=== PATIENT | female | born 1955 | race Caucasian/White ===

== ENCOUNTER 2021-01-31 07:25 | Outpatient (REF) | payer OTHER, SELFPAY ==
--- NOTE | ~2021-01-31 | MM_ITS ---
EXAMINATION: BONE DENSITOMETRY CLINICAL INDICATION: Osteopenia. COMPARISON: Baseline BD dated 09/08/2015. TECHNIQUE: Using a [employer] DXA System (software version: 13.1) manufactured by [employer], dual-energy x-ray absorptiometry was performed of the lumbar spine and left hip. The images are of good technical quality. Summary results are attached. FINDINGS: AP SPINE L1-L4: Current: BMD 0.850 g/cm2, Z-score -1.6, T-score -2.8, osteoporosis, 10.1% decrease from baseline (<5% change is not significant). Baseline: BMD 0.945 g/cm2. LEFT FEMUR, NECK: Current: BMD 0.685 g/cm2, Z-score -1.3, T-score -2.5, osteoporosis. Baseline: BMD 0.723 g/cm2. LEFT FEMUR, TOTAL: Current: BMD 0.794 g/cm2, Z-score -0.8, T-score -1.7, osteopenia, 3.4% decrease from baseline (<5% change is not significant). Baseline: BMD 0.822 g/cm2. IDENTIFIED RISK FACTORS: Menopause, history of fracture (adult). HISTORY OF FRACTURE: Wrist. MEDICATIONS: Calcium, vitamin D. MM/XR DEXA axial skeleton IMPRESSION: 1. DIAGNOSIS: Severe osteoporosis based on the lowest T-score value of -2.8 in the lumbar spine and history of fracture of wrist applying World Health Organization criteria. 2. 10-YEAR FRACTURE RISK PREDICTION, FRAX: Major osteoporotic fracture (clinical spine, forearm, hip or shoulder) 21.4%. Hip fracture 4.8%. 3. Treatment Recommendations: NOF guidelines recommend consideration for treatment in postmenopausal women and men age 50 and older presenting with the following: -A hip or vertebral (clinical or morphometric) fracture. -T-score less than or equal to -2.5 at the femoral neck or spine after appropriate evaluation to exclude secondary causes. -Low bone mass at the hip or spine and a 10-year fracture probability by FRAX of greater than or equal to 3% for hip fracture or greater than or equal to 20% for major osteoporotic fracture based on the [place] adapted WHO algorithm. 4. Other Recommendations: All treatment decisions require clinical judgment and consideration of individual patient factors, including patient preferences, comorbidities, previous drug use, risk factors not captured in the FRAX model (e.g. frailty, falls, vitamin D deficiency, increased bone turnover, interval significant decline in bone density) and possible under or overestimation of fracture risk by FRAX. Additional medical evaluation for secondary cause of low bone mineral density may be appropriate. FUTURE SCAN RECOMMENDATION: People with diagnosed cases of osteoporosis or at high risk for fracture should have regular bone mineral density tests. For patients eligible for Medicare, routine testing is allowed once every 2 years. The testing frequency can be increased to one year for patients who have rapidly progressing disease, those who are receiving or discontinuing medical therapy to restore bone mass, or have additional risk factors.
--- NOTE | ~2021-01-31 | MM_ITS ---
EXAMINATION: MM SCREENING DIGITAL BREAST TOMOSYNTHESIS, BILATERAL CLINICAL INFORMATION: Screening. Asymptomatic. The lifetime risk of breast cancer based on the Tyrer-Cuzick Model is 9%. COMPARISON: Mammography: 05/26/2018, 06/24/2017, 10/15/2016 TECHNIQUE: Digital mammography is performed in craniocaudal and mediolateral oblique views along with computer-aided detection (CAD). Digital breast tomosynthesis is performed in implant-displaced craniocaudal and implant-displaced mediolateral oblique views along with computer-aided detection (CAD). Synthesized 2D images are generated from the tomosynthesis. FINDINGS: There are scattered areas of fibroglandular density (ACR BI-RADS breast composition Category b). There are bilateral implants. The implant contours are similar to prior studies. Again, there is heavy bilateral benign capsular calcifications along the implant contours. Parenchymal pattern is similar to prior studies. There is no developing density or interval mass or architectural abnormality. No abnormal calcifications. The skin contours are smooth. No significant changes. MM/MM tomosynthesis screen imp BI IMPRESSION: No mammographic evidence of malignancy. ASSESSMENT: BI-RADS 2: Benign RECOMMENDATION: Routine annual mammography screening. This patient's information was entered into a reminder system with a target due date for their next mammogram.
== END 2021-01-31 07:26 | disposition home or self-care (01) ==
LOC: HO.MAMMO 07:25
PROVIDERS: PCP Internal Medicine; Visit Provider Internal Medicine
DX: Z12.31 Encounter for screening mammogram for malignant neoplasm of breast (principal); Z13.820 Encounter for screening for osteoporosis; M85.80 Other specified disorders of bone density and structure, unspecified site; M81.0 Age-related osteoporosis without current pathological fracture; Z87.81 Personal history of (healed) traumatic fracture; Z78.0 Asymptomatic menopausal state; Z79.899 Other long term (current) drug therapy
CPT/HCPCS: 77063; 77067; 77080

== ENCOUNTER 2023-02-18 08:22 | Outpatient (REF) | payer MEDICARE, SELFPAY ==
--- NOTE | ~2023-02-18 | XR_ITS ---
EXAMINATION: XR SHOULDER, LEFT CLINICAL INFORMATION: Pain. COMPARISON: None available. TECHNIQUE: AP neutral, scapular Y, and axillary views of the left shoulder. FINDINGS: The bones and soft tissues are normal. No fracture. Glenohumeral and acromioclavicular alignment is anatomic with normal joint space. No abnormal soft tissue calcifications. XR/XR shoulder LT min 2V IMPRESSION: Normal left shoulder.
== END 2023-02-18 08:23 | disposition home or self-care (01) ==
LOC: HO.HOSX 08:22
PROVIDERS: Visit Provider Physician Assistant
DX: M25.512 Pain in left shoulder (principal); M75.82 Other shoulder lesions, left shoulder
CPT/HCPCS: 20610; 73030; 99202; J1040

== ENCOUNTER → 2023-03-18 08:00 | Outpatient (BNV) | payer MEDICARE, SELFPAY | PROVIDERS: PCP Internal Medicine; Visit Provider Radiology Diagnostic Radiology | DX: Z12.31 Encounter for screening mammogram for malignant neoplasm of breast (principal) | CPT/HCPCS: 77063; 77067 ==

== ENCOUNTER 2023-03-18 08:06 | Outpatient (REF) | payer MEDICARE, SELFPAY ==
--- NOTE | ~2023-03-18 | MM_ITS ---
EXAMINATION: MM SCREENING DIGITAL BREAST TOMOSYNTHESIS, BILATERAL WITH BREAST IMPLANTS CLINICAL INFORMATION: Screening. Asymptomatic. The lifetime risk of breast cancer based on the Tyrer-Cuzick Model is 7.1%. COMPARISON: Mammography: This study is compared with the prior exams dating back to 2017. TECHNIQUE: Digital mammography is performed in craniocaudal and mediolateral oblique views along with computer-aided detection (CAD). Digital breast tomosynthesis is performed in implant-displaced craniocaudal and implant-displaced mediolateral oblique views along with computer-aided detection (CAD). Synthesized 2D images are generated from the tomosynthesis. Implant displaced MLO and cc views are performed. FINDINGS: There are scattered areas of fibroglandular density (ACR BI-RADS breast composition Category b). There are mammographically intact, retroglandular silicone implants. There is capsular contraction and evidence of surface calcifications of the implants. There are no significant masses, abnormal calcifications, or other abnormalities. MM/MM tomosynthesis screen imp BI IMPRESSION: No mammographic evidence of malignancy. ASSESSMENT: BI-RADS BI-RADS 1 - Negative RECOMMENDATION: Routine annual mammography screening. 1 year F/U This patient's information was entered into a reminder system with a target due date for their next mammogram.
== END 2023-03-18 08:07 | disposition home or self-care (01) ==
LOC: HO.MAMMO 08:06
PROVIDERS: PCP Internal Medicine; Visit Provider Internal Medicine
DX: Z12.31 Encounter for screening mammogram for malignant neoplasm of breast (principal)
CPT/HCPCS: 77063; 77067

== ENCOUNTER 2024-01-13 11:33 | Outpatient (AMB) | payer MEDICARE, SELFPAY ==
[2024-01-13 11:34] VITALS: BP 124/78; PULSE 98; O2SAT 73; BMI 32.7
--- NOTE | 2024-01-13 11:34 | A.OFFPC_ITS ---
Vital Signs 01/13/24 11:34 Height 5 ft 2 in Weight 179 lb 0.2 oz BMI 32.7 BP 124/78 Blood Pressure Location Lt brachial Position Sitting Pulse 98 Pulse Source Pulse Oximeter Pulse Oximetry (%) 73 L Oxygen Delivery Method Room Air Intake Visit Reasons: PE Intake Note: Patient is here today for a physical. 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 Allergies No Known Allergies [No Known Allergies*] Allergy (Verified 01/13/24 11:35) Medication List - Last Reconciled 01/13/24 by Kiera Silva MD famotidine 40 mg PO DAILY glucosamine sulfate (Glucosamine) 500 mg PO DAILY milk thistle 500 mg PO DAILY multivitamin 1 tab PO DAILY turmeric mg PO Tobacco use date assessed: 01/13/24 Fall risk assessment: No Falls in past year Last assessed Fall Risk: 01/13/24 Dental Screening Dental Screen Date: 01/13/24 Did you have a dental visit in the last 12 months?: Yes Did you have a dental problem in the last 6 months where you did not have access to dental care?: No Was dental information given to patient?: Patient has dentist HPI PE HPI Details 68-year-old obese female with impaired g lucose tolerance hypercholesterolemia osteopenia coming in for physical exam last seen in 2020. Patient's colonoscopy is due mammogram is up-to-date bone density is due. March 2023 had some left shoulder pain seen Orthopedics conservative management. pain chest 2 months sitting went to the back = lasting 1 mon, sob pain spontanously get better. deny pain on palpable, deny heartburn. no naps , no sleeping on watching tv [facility] Medical History Asthma GERD (gastroesophageal reflux disease) Hepatitis B Hypercholesterolemia Obesity (BMI 30-39.9) Osteopenia Vaginal atrophy Surgical History Breast implant in situ H/O wrist surgery Family History Mother High blood pressure Arthritis Father No problems noted. Social History (Updated 01/13/24 @ 11:57 by Kiera Silva MD) Alcohol intake: current Alcohol intake frequency: a few times a week Alcohol type: wine Comment: 2x a week 1 glass Patient Tobacco Use Status: Never used Tobacco Current occupational status: employed Current occupation: rt hand/ manager development Cognitive needs: No Hearing needs: No Vision needs: No Questionnaire PHQ-9 Over the last 2 weeks, how often have you been bothered by any of the following problems? 1. Little interest or pleasure in doing things: not at all 2. Feeling down, depressed, or hopeless: not at all 3. Trouble falling or staying asleep, or sleeping too much: not at all 4. Feeling tired or having little energy: not at all 5. Poor appetite or overeating: not at all 6. Feeling bad about yourself - or that you are a failure or have let yourself or your family down: not at all 7. Trouble concentrating on things, such as reading the newspaper or watching television: not at all 8. Moving or speaking so slowly that other people could have noticed. Or the opposite - being so fidgety or restless that you have been moving around a lot more than usual: not at all 9. Thoughts that you would be better off or of hurting yourself in some way: not at all Total score: 0 Depression Screening Interpretation: Negative Depression Screening Done: Yes 12225 - PHQ-9 Billing: Yes Source: Developed by Drs. Vicente Cordon, Vivian Roberts, Hank New and colleagues, with an educational joel from [employer]. Thrive Questionnaire Date Thrive assessed: 01/13/24 I am a: Patient What is your living situation today?: I have a steady place to live Within the past 12 months, did the food you bought not last and you didn't have the money to get more?: Never true Within the past 12 months, did you worry whether your food would run out before you got money to buy more?: Never true Do you have trouble paying for medicines?: No Do you have trouble getting transportation to medical appointments?: No Do you have trouble paying your heating and electricity bill?: No Do you have trouble taking care of your child, family member or friend?: No Do you have trouble with day-to-day activities such as bathing, preparing meals, shopping, managing finances, etc.?: No Are you currently unemployed and looking for a job?: No Are you interested in more education?: No Please select the resources that you would like help with: None Currently or been in a relationship where the following occur: no concerns reported THRIVE Score: 0 AUDIT C Alcohol Use Questionnaire (AUDIT-C) 1. How often do you have a drink containing alcohol?: 2-3 times a week 2. How many drinks containing alcohol do you have on a typical day when you are drinking?: 1 or 2 3. How often do you have six or more drinks on one occasion?: Never Total Score: 3 KEITH-7 AMB Questionnaire KEITH-7 Date KEITH - 7 assessed: 01/13/24 Feeling nervous, anxious, or on edge: 0 = Not at all Not being able to stop or control worryin = Not at all Worrying too much about different things: 0 = Not at all Trouble relaxin = Not at all Being so restless that it is hard to sit still: 0 = Not at all Becoming easily annoyed or irritable: 0 = Not at all Feeling afraid as if something awful might happen: 0 = Not at all Total KEITH-7 score (0-4 normal; 5-9 mild; 10-14 moderate; 15-21 severe): 0 Source: Developed by Drs. Vicente Cordon, Vivian Roberts, Hank New and colleagues, with an educational joel from [employer]. KEITH-7 Assessment Billing KEITH-7 Assessment Tool: KEITH-7 Assessment 58505 Review of Systems Const Denies poor appetite and Denies weakness Eyes Denies no additional complaints ENT Reports Normal hearing present, Denies dizziness, Denies nasal congestion, Denies tinnitus and Denies sore throat Card Denies chest pain, Denies syncope, Denies rapid heart rate and Denies dyspnea Resp Denies cough and Denies dyspnea GI Denies change in stool character, Reports constipation, Denies diarrhea, Denies nausea and Denies vomiting Denies urinary frequency, Denies difficulty voiding and Denies dysuria Neuro Reports Normal hearing present, Denies confusion, Denies dizziness, Denies syncope and Denies weakness Psych Denies confusion Physical exam (Primary Care) Vital Signs: Last Vital Signs Pulse 98 01/13/24 11:34 BP 124/78 01/13/24 11:34 Pulse Ox 73 L 01/13/24 11:34 Oxygen Delivery Method Room Air 01/13/24 11:34 BMI result Body Mass Index 32.7 Tobacco/Smoking Status: Tobacco use Status Tobacco use date assessed 01/13/24 01/13/24 11:36 PHQ-9: PHQ-9 Score PHQ-9: Total score 0 01/13/24 11:36 Depression Screening Interpretation: Negative Thrive Assessment: Date of Thrive Assessment Date Thrive assessed 01/13/24 01/13/24 11:36 Currently or been in a relationship where the following occur: no concerns reported Const General: No confusion Orientation/consciousness: No confusion HENMT Head: Yes normocephalic Ears: external ears normal and TM's normal bilaterally Face and sinus: Yes normal facial exam Mouth: moist mucous membranes Throat: Yes tonsils normal Eyes Conjunctivae: conjunctivae normal Pupils: Equal, round and reactive pupils present and Pupil accommodation reflex normal Direct Ophthalmoscopy: normal light reflex Neck Neck: No lymphadenopathy Thyroid: Thyroid normal Chest Chest palpation & inspection: normal inspection of the chest Resp Effort & Inspection: normal respiratory effort and no audible wheezes Auscultation: clear to auscultation bilaterally, no crackles, no wheezes and lung sounds not diminished Cardio Rate: regular rate Rhythm: regular rhythm Peripheral pulses: radial pulses present and dorsalis pedis present GI Palpation (GI): no masses Auscultation: normal bowel sounds and normoactive bowel sounds Rectal Exam - Female: deferred Skin General skin exam: no rashes or lesions noted Rashes: no rashes Neuro General: No confusion Cranial nerves: Yes Equal, round and reactive pupils present and Yes Normal hearing present Cognition (Neuro): normal cognition Gait exam (Neuro): Normal gait present Motor exam (neuro): 5/5 motor strength present throughout Deep tendon reflexes (DTR's): Right brachioradialis reflex intensity grade: 2+, Left brachioradialis reflex intensity grade: 2+, Right patellar reflex intensity grade: 2+ and Left patellar reflex intensity grade: 2+ Extrem General: No edema Assessment and Plan Assessment & Plan (1) Annual physical exam: Code(s): Z00.00 - Encounter for general adult medical examination without abnormal findings (2) Impaired glucose tolerance: Code(s): R73.02 - Impaired glucose tolerance (oral) Plan: Decrease the amount of carbohydrate intake, pasta, bread, rice and potatoes are all sugar and that is aside from all the sweet stuff, remember that fruits are good but they are Sweet also. (3) GERD (gastroesophageal reflux disease): Code(s): K21.9 - Gastro-esophageal reflux disease without esophagitis Plan: Avoid the foods that causes that usually spicy foods, tomato products, juices, coffee, soda and foods that your sensitive to. After eating do not lie down, allow 3-4 hours before in lie down. And keep the head of bed above 30 degrees to avoid the acid from going up. On famotidine (4) Asthma: Code(s): J45.909 - Unspecified asthma, uncomplicated Plan: Stable (5) Hypercholesterolemia: Code(s): E78.00 - Pure hypercholesterolemia, unspecified Plan: Avoid fried foods, chicken skin, eggs, butter margarine, pastries and meat. Be it pork or beef they have a lot of cholesterol LDL goal of less than 130 and triglyceride of less than 150 (6) Obesity (BMI 30-39.9): Code(s): E66.9 - Obesity, unspecified Plan: Diet and exercise (7) Colon cancer screening: Code(s): Z12.11 - Encounter for screening for malignant neoplasm of colon Plan: Patient is reminded about colon cancer screening (8) Osteopenia: Code(s): M85.80 - Other specified disorders of bone density and structure, unspecified site Plan: Reminded about bone density (9) Chest pain: Code(s): R07.9 - Chest pain, unspecified Orders: Orders Comprehensive Met. Panel Today E78.00 - Pure hypercholesterolemia, unspecified Free T4 (Free Thyroxine) Today E78.00 - Pure hypercholesterolemia, unspecified Thyroid Stimulating Hormone Today E78.00 - Pure hypercholesterolemia, unspecified Lipid Panel Today E78.00 - Pure hypercholesterolemia, unspecified Vitamin B12 and Folate Today E78.00 - Pure hypercholesterolemia, unspecified Hemoglobin A1c Today E78.00 - Pure hypercholesterolemia, unspecified XR DEXA axial skeleton Today M81.0 - Age-related osteoporosis without current pathological fracture, M85.80 - Other specified disorders of bone density and structure, unspecified site ECG 12 lead EKG Today R07.9 - Chest pain, unspecified XR chest 2V Today R07.9 - Chest pain, unspecified Complete Blood Count Auto Diff Today E78.00 - Pure hypercholesterolemia, unspecified Vitamin D 25-OH Total Today E78.00 - Pure hypercholesterolemia, unspecified CA stress test Today R07.9 - Chest pain, unspecified Referrals Gastroenterology Referral Z12.11 - Encounter for screening for malignant neoplasm of colon Coding Level of Care Code Est Pt Level 3 (90222) Est Pt Prev Care >65y(81774) Diagnoses Annual physical exam Z00.00 Impaired glucose tolerance R73.02 GERD (gastroesophageal reflux disease) K21.9 Asthma J45.909 Hypercholesterolemia E78.00 Obesity (BMI 30-39.9) E66.9 Colon cancer screening Z12.11 Osteopenia M85.80 Chest pain R07.9 Additional Codes KEITH-7 Assessment Billing - KEITH-7 Assessment Tool: KEITH-7 Assessment 30370 ([id number])
== END 2024-01-13 12:12 | disposition home or self-care (01) ==
PROVIDERS: PCP Internal Medicine; Visit Provider Internal Medicine
DX: Z00.00 Encounter for general adult medical examination without abnormal findings (principal); R73.02 Impaired glucose tolerance (oral); K21.9 Gastro-esophageal reflux disease without esophagitis; J45.909 Unspecified asthma, uncomplicated; E78.00 Pure hypercholesterolemia, unspecified; M85.80 Other specified disorders of bone density and structure, unspecified site; R07.9 Chest pain, unspecified
CPT/HCPCS: 99397

== ENCOUNTER 2024-02-06 10:46 | Outpatient (REF) | payer MEDICARE, SELFPAY ==
--- NOTE | ~2024-02-06 | MM_ITS ---
EXAMINATION: BONE DENSITOMETRY CLINICAL INDICATION: Age-related osteoporosis without recurrent pathological fracture. COMPARISON: Previous BD dated 01/31/2021 and baseline BD dated 09/08/2015. TECHNIQUE: Using a [employer] DXA System (software version: 13.1) manufactured by [employer], dual-energy x-ray absorptiometry was performed of the lumbar spine and left hip. The images are of good technical quality. Summary results are attached. FINDINGS: LEFT FEMUR, NECK: Current: BMD 0.673 g/cm2, Z-score -1.3, T-score -2.6, osteoporosis. Prior: BMD 0.685 g/cm2. Baseline: BMD 0.723 g/cm2. LEFT FEMUR, TOTAL: Current: BMD 0.785 g/cm2, Z-score -0.7, T-score -1.8, osteopenia, 1.1% decrease from previous, 4.5% decrease from baseline (<5% change is not significant). Prior: BMD 0.794 g/cm2. Baseline: BMD 0.822 g/cm2. AP SPINE L1-L4: Current: BMD 0.835 g/cm2, Z-score -1.7, T-score -2.9, osteoporosis, 1.8% decrease from previous, 11.6% decrease from baseline (<5% change is not significant). Prior: BMD 0.850 g/cm2. Baseline: BMD 0.945 g/cm2. IDENTIFIED RISK FACTORS: Menopause, history of fracture (adult). HISTORY OF FRACTURE: Wrist. MEDICATIONS: Calcium, vitamin D. MM/XR DEXA axial skeleton IMPRESSION: 1. DIAGNOSIS: Severe osteoporosis based on the lowest T-score value of -2.9 in the lumbar spine and history of fracture of wrist applying World Health Organization criteria. 2. 10-YEAR FRACTURE RISK PREDICTION, FRAX: According to the guidelines, FRAX calculation should only be performed on patients in the osteopenia bone density category. Therefore, FRAX was not performed on this patient. 3. Treatment Recommendations: NOF guidelines recommend consideration for treatment in postmenopausal women and men age 50 and older presenting with the following: -A hip or vertebral (clinical or morphometric) fracture. -T-score less than or equal to -2.5 at the femoral neck or spine after appropriate evaluation to exclude secondary causes. -Low bone mass at the hip or spine and a 10-year fracture probability by FRAX of greater than or equal to 3% for hip fracture or greater than or equal to 20% for major osteoporotic fracture based on the [place] adapted WHO algorithm. 4. Other Recommendations: All treatment decisions require clinical judgment and consideration of individual patient factors, including patient preferences, comorbidities, previous drug use, risk factors not captured in the FRAX model (e.g. frailty, falls, vitamin D deficiency, increased bone turnover, interval significant decline in bone density) and possible under or overestimation of fracture risk by FRAX. Additional medical evaluation for secondary cause of low bone mineral density may be appropriate. FUTURE SCAN RECOMMENDATION: People with diagnosed cases of osteoporosis or at high risk for fracture should have regular bone mineral density tests. For patients eligible for Medicare, routine testing is allowed once every 2 years. The testing frequency can be increased to one year for patients who have rapidly progressing disease, those who are receiving or discontinuing medical therapy to restore bone mass, or have additional risk factors.
[2024-02-06 11:02] LABS: MANUAL DIFF FLAG NO
[2024-02-06 11:38] LABS: Basophils Percent Auto 0.7 % (0-2); Eosinophils Absolute Auto 0.1 X10*3/uL (0.0-0.4); Eosinophils Percent Auto 2.3 % (0-4); Hematocrit 42.7 % (37.0-47.0); Hemoglobin 14.2 g/dl (12.0-16.0); Imm Gran Abs Auto 0.01 X10*3/uL (0.00-0.03); Imm Gran Pct Auto 0.2 % (0.0-0.4); Lymphocytes Absolute Auto 2.3 X10*3/uL (1.2-4.9); Lymphocytes Percent Auto 41.1 % (20-40); Mean Corpuscular HGB Conc 33.3 g/dl (31.0-35.0); Mean Corpuscular Hemoglobin 30.9 pg (27.0-33.0); Mean Corpuscular Volume 92.8 fL (80.0-98.0); Mean Platelet Volume 10.4 fL (9.4-12.3); Monocytes Absolute Auto 0.5 X10*3/uL (0.1-1.2); Monocytes Percent Auto 8.2 % (2-11); Neutrophils Absolute Auto 2.7 x10*3/uL (2.0-8.3); Neutrophils Percent Auto 47.5 % (45-73); Platelet Count 240 X10*3/uL (160-400); Red Cell Distribution Width 13.6 % (11.0-16.0); White Blood Count 5.6 X10*3/uL (4.8-10.8)
[2024-02-06 11:50] LABS: Estimated Average Glucose 111 mg/dL; Hemoglobin A1c % 5.5 % (<6.0)
[2024-02-06 12:20] LABS: Alanine Aminotransferase 24 U/L (0-31); Albumin Level 4.2 g/dL (3.5-5.0); Alkaline Phosphatase 68 U/L (39-117); Anion Gap 13 (12-20); Aspartate Amino Transferase 20 U/L (5-31); Bilirubin Total 0.7 mg/dL (0.0-1.0); Blood Urea Nitrogen 14 mg/dL (9-16); Calcium 10.2 mg/dL (8.4-10.2); Carbon Dioxide 28 mmol/L (22-29); Chloride 105 mmol/L (96-108); Cholesterol 244 mg/dL (<200); Estimated Glomerular Filt Rate > 60; Glucose Random 108 mg/dL (60-115); HDL Cholesterol 76 mg/dL (>40); LDL Cholesterol Calculated 148 mg/dL (<100); Potassium 4.1 mmol/L (3.3-5.1); Sodium 142 mmol/L (135-145); Total Protein 7.4 g/dL (6.5-8.0); Triglycerides 104 mg/dL (<150)
[2024-02-06 12:39] LABS: Thyroid Stimulating Hormone 3.75 uIU/mL (0.32-4.0); Vitamin D 25-OH Total 128.3 ng/mL (>30)
[2024-02-06 12:42] LABS: Folate 14.5 ng/mL (> or = 4.0); Vitamin B12 938 pg/mL (200-900)
== END 2024-02-06 10:47 | disposition home or self-care (01) ==
LOC: HO.MAMMO 10:46
PROVIDERS: PCP Internal Medicine; Visit Provider Internal Medicine
DX: E78.00 Pure hypercholesterolemia, unspecified (principal); M81.0 Age-related osteoporosis without current pathological fracture; M85.80 Other specified disorders of bone density and structure, unspecified site
CPT/HCPCS: 36415; 77080; 80053; 80061; 82306; 82607; 82746; 83036; 84439; 84443; 85025

== ENCOUNTER 2024-02-11 01:50 | Emergency (ER) | payer MEDICARE, SELFPAY ==
[2024-02-11 01:54] VITALS: BP 153/64; PULSE 78; RESP 20; TEMP 36.4; O2SAT 98; BMI 31.0
[2024-02-11] MEDS: Ibuprofen 600 MG TABLET PO (05:01)
[2024-02-11 06:04] VITALS: BP 158/58; PULSE 71; RESP 20; TEMP 36.8; O2SAT 97
--- NOTE | 2024-02-11 06:21 | PC.NURSE ---
pt medicated with ibuprofen for pain and given hot packs while waiting for ED provider. resting more comfortably, call [facility] within reach. at bedside.
--- NOTE | 2024-02-11 07:08 | ED_ITS ---
HPI - Back Pain/Injury General Chief Complaint: Back Pain/Injury Stated Complaint: back pain Time Seen by Provider: 02/11/24 07:01 Source: patient Mode of arrival: ambulatory Limitations: no limitations History of Present Illness ED Provider: THANIA MENDIETA Narrative: 68 yo female with PMH of GERD, asthma, HLD here with c/o low back pain after moving chair in grass on saturday not responding to tylenol - no numbness, weakness, loss of control of bowel or bladder/saddle anesthesia. Not on thinners. Hurts to get up and walk MD elicited complaint: back injury Onset (ago): day(s) (2) Timing: constant Severity: moderate Similar Symptoms Previously: No Quality: throbbing Location: lumbar spine Radiation: none Exacerbating factors: movement Context: other Associated symptoms: denies other symptoms Treatments prior to arrival: acetaminophen Work related injury: No Related Data Home Medications ?Medication ?Instructions ?Recorded ?Confirmed famotidine 40 mg tablet 40 mg PO DAILY 11/21/20 01/13/24 glucosamine sulfate 500 mg tablet 500 mg PO DAILY 01/13/24 01/13/24 (Glucosamine) milk thistle 500 mg capsule 500 mg PO DAILY 01/13/24 01/13/24 multivitamin 1 tab PO DAILY 01/13/24 01/13/24 turmeric 400 mg capsule mg PO 01/13/24 01/13/24 Previous Rx's ?Medication ?Instructions ?Recorded cyclobenzaprine 10 mg tablet 10 mg PO TID PRN muscle spasm #20 02/11/24 tabs lidocaine 5 % topical patch 1 patch topical DAILY #30 ea 02/11/24 Allergies Allergy/AdvReac Type Severity Reaction Status Date / Time No Known Allergies Allergy Verified 02/11/24 01:59 [No Known Allergies*] Review of Systems Review of Systems: Constitutional : No Weight loss, No Fever, No Chills, ENT/Mouth : No Hearing loss, No Ear Pain, No Nasal Congestion, No Sinus Pain, No Hoarseness, No sore throat, No Rhinorrhea, No Swallowing Difficulty Cardiovascular : No Chest Pain, No SOB Respiratory : No Cough, No Dyspnea Gastrointestinal : No Nausea, No Vomiting, No Diarrhea, No abdominal Pain, No Hematochezia, No Melena Genitourinary : No Dysuria, No Urinary Frequency, No Hematuria, No Urinary Incontinence, Musculoskeletal : positive back pain Skin : No Skin Lesions, No rash Neuro : No Weakness, No Numbness, No Paresthesias, no loss of bowel or bladder incontinence, no saddle anesthesia all other systems reviewed and are negative [facility] Past Medical History Medical History Asthma GERD (gastroesophageal reflux disease) Hepatitis B Hypercholesterolemia Obesity (BMI 30-39.9) Osteopenia Vaginal atrophy Surgical History Breast implant in situ H/O wrist surgery Family History Family History Mother High blood pressure Arthritis Father No problems noted. 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 Oriented X3. No acute distress. Eyes: Pupils equal, round and reactive to light. ENT: Pharynx normal. Neck: Normal inspection. Neck supple. CVS: Normal heart rate and rhythm. Pulses normal. Respiratory: No respiratory distress. Breath sounds normal. Abdomen: Soft and nontender. Back: ttp along bilateral lower lumbar paraspinals reproduces pain Skin: Skin warm and dry. Normal skin color. Normal skin turgor. Extremities: No lower extremity edema. No calf ttp reports mild swelling around ankles but it is not pitting on my exam Neuro: Oriented X 3. No motor deficit. No sensory deficit. SILT inner thigh, L5 5/5 bilaterally, no pain with leg raises Medications Administered Discontinued Medications Generic Name Dose Route Start Last Admin Trade Name Keila PRN Reason Stop Dose Admin Ibuprofen 600 mg 02/11/24 04:59 02/11/24 05:01 Ibuprofen 600 Mg Tablet PO 02/11/24 05:00 600 mg ONCE ONE Administration Medical Decision Making Medical Decision Making [facility] Narrative: 68 yo female with PMH of GERD, asthma, HLD here with c/o low back pain after she moved a chair in the grass on saturday no b/b incontinence no saddle anesthesia she is NV intact no falls to suggest fracture. she has no abdominal pain. she just had normal Cr on 02/05 with PCP. Pain is reproduceable and she has neg straight leg raises suspect MSK spasm - flexeril and lidocaine patches ordered. Differential Diagnosis Differential Diagnoses: The differential diagnosis associated with the presentation includes strain, spasm Admission/Observation Consideration of admission/observation: Escalation of care including admission/observation considered able to ambulate can be DC home Lab Data [facility] Lab Attestation statement: I reviewed the patient's lab results. External Record Review External record reviewed: Office record Tests considered The following testing was considered but not selected: xray but no trauma to suggest fracture Prescription Management I considered prescription management with: Pain Medication and Other Discharge Plan Discharge Clinical Impression: Back muscle spasm Strain of lumbar region Qualifiers: Encounter type: initial encounter Qualified Code(s): S39.012A - Strain of muscle, fascia and tendon of lower back, initial encounter Patient Disposition: Home, Self-Care Instructions: Acute Low Back Pain (ED), Muscle Spasm (ED) Additional Instructions: return for weakness, numbness, loss of control of bowel or bladder. no lifting more than 10lbs for 2 weeks. do not just lay in bed this will get worse take slow short walks. use heat and ice for pain. follow up with primary care doctor for physical therapy Prescriptions: New cyclobenzaprine 10 mg tablet 10 mg PO TID PRN (Reason: muscle spasm) Qty: 20 0RF lidocaine 5 % adhesive patch,medicated 1 patch topical DAILY Qty: 30 0RF Rx Instructions: leave on most painful area for up to 12 hrs No Action famotidine 40 mg tablet 40 mg PO DAILY multivitamin Tablet 1 tab PO DAILY glucosamine sulfate [Glucosamine] 500 mg tablet 500 mg PO DAILY Rx Instructions: administer with a meal milk thistle 500 mg capsule 500 mg PO DAILY Rx Instructions: give with meal/snack turmeric 400 mg capsule PO Print Language: Setswana
[2024-02-11] MEDS: Lidocaine 4 % Patch ADH..PATCH 2 PATCH TRANSDERMA (07:34)
[2024-02-11] MEDS: Cyclobenzaprine HCl 10 MG TABLET PO (07:34)
[2024-02-11 07:46] VITALS: BP 167/67; PULSE 70; RESP 18; TEMP 36.4; O2SAT 97
--- OUTSIDE RECORDS SUMMARY | 2024-02-14 09:38 | XMS_ITS | Patient Health Record ---
Author Organization [facility] Address [address] [address] Care Team Providers Care Call Or Contact Centre Team Leader Name Role Phone Kiera Silva MD Primary Care Provider Vicente Carcamo Unavailable [phone] REASON FOR REFERRAL No Information MEDICATIONS Medication SIG (Take, Route, Fr equency, Duration) Notes Start Date End Date Status Famotidine 40 MG TAKE 1 TABLET BY URSULA TH EVERY DAY IN THE MORNING for 90 Active SOCIAL HISTORY Tobacco Use: Social History Observation Description Date Details (start date - stop date) Never Smoker NA - NA Sex Assigned At : Social History Observation Description Sex Assigned At Unknown Tobacco Use/Smoking Question Answer Notes Patient is a nonsmoker Alcohol Screen Question Answer Notes Did you have a drink contain ing alcohol in the past year? Yes How often did you have a dri nk containing alcohol in the past year? Monthly or less (1 point) How many drinks did you have on a typical day when you were drinking in the past year? 1 or 2 drinks (0 point) How often did you have 6 or more drinks on one occasion in the past year? Never (0 point) Points 1 Interpretation Negative PROBLEMS Problem Type ICD Code Onset Dates Problem Status W/U Status Risk SNOMED Code Notes Problem Encounter for screening for malignant neoplasm of colon (Z12.11) Active confirmed 413795980 Problem Family history of colon cancer (Z80.0) Active confirmed 182073020 Problem Preprocedural examination (Z01.818) Active confirmed 344711467 PLAN OF TREATMENT Future Test Test Name Order Date COLONOSCOPY 07/10/2017 Next Appt Details Provider Name:Vicente Damico , 05/21/2024 10:00:00 AM, [address], [address], [place], [address], Insurance Providers Payer Name Payer Address Payer Phone Subscriber Number Group Number Insured Name Patient Relationship to Insured Coverage Start Date Coverage End Date [facility] [address] [place] [address] [id number] ANIA DEUTSCH Self - patient is the insured MEDICAL (GENERAL) HISTORY Medical History History ICD Code Denies UT,DM,CVA,Lung disease,renal dise ase Reported negative colonoscopy at age 49 Surgical History Surgery Date(Month/Year) Right wrist surgery for a fracture 2011
== END 2024-02-11 07:51 | disposition home or self-care (01) ==
PROVIDERS: Emergency Provider Emergency Medicine; PCP Internal Medicine
DX: S39.012A Strain of muscle, fascia and tendon of lower back, initial encounter (principal); X50.9XXA Other and unspecified overexertion or strenuous movements or postures, initial encounter; M62.830 Muscle spasm of back; Y93.89 Activity, other specified; Y92.007 Garden or yard of unspecified non-institutional (private) residence as the place of occurrence of the external cause; Y99.9 Unspecified external cause status
CPT/HCPCS: 99283; 99284

== ENCOUNTER 2024-02-14 08:25 | Outpatient (AMB) | payer MEDICARE, SELFPAY ==
[2024-02-14 08:26] VITALS: BP 124/74; PULSE 68; O2SAT 98; BMI 31.9
--- NOTE | 2024-02-14 08:26 | A.OFFPC_ITS ---
Vital Signs 02/14/24 08:26 Height 5 ft 3 in Weight 180 lb BMI 31.9 BP 124/74 Blood Pressure Location Lt brachial Position Standing Pulse 68 Pulse Source Pulse Oximeter Pulse Oximetry (%) 98 Oxygen Delivery Method Room Air Intake Visit Reasons: [facility] Back Spasm Township Supervisor: Not Required per policy Accompanied by: Self / Same As Patient Allergies No Known Allergies [No Known Allergies*] Allergy (Verified 02/14/24 08:27) Tobacco use date assessed: 01/13/24 Fall risk assessment: No Falls in past year Last assessed Fall Risk: 02/14/24 Dental Screening Dental Screen Date: 01/13/24 HPI HPI Comments History of Present Illness Details 68 y/o female patient presents to clinic for ED follow up for Back Spasm. DOS: 02/11/24 and DOD: 02/11/24. She was discharged home with Muscle relaxants, Ibuprofen and Lidocaine Patches. Today reports some improvement. She is asking for referral for Physical therapy. Denies bladder or bowel symptoms today. [facility] Medical History Asthma GERD (gastroesophageal reflux disease) Hepatitis B Hypercholesterolemia Obesity (BMI 30-39.9) Osteopenia Vaginal atrophy Surgical History Breast implant in situ H/O wrist surgery Family History Mother High blood pressure Arthritis Father No problems noted. Social History (Updated 01/13/24 @ 11:57 by Kiera Silva MD) Alcohol intake: current Alcohol intake frequency: a few times a week Alcohol type: wine Comment: 2x a week 1 glass Patient Tobacco Use Status: Never used Tobacco Current occupational status: employed Current occupation: rt hand/ store promoter Cognitive needs: No Hearing needs: No Vision needs: No Questionnaire Thrive Questionnaire Date Thrive assessed: 01/13/24 KEITH-7 AMB Questionnaire KEITH-7 Date KEITH - 7 assessed: 01/13/24 Source: Developed by Drs. Vicente Cordon, Vivian Roberts, Hank New and colleagues, with an educational joel from [employer]. Review of Systems Const All systems reviewed & are unremarkable except as noted in HPI and below Physical exam (Primary Care) Vital Signs: Last Vital Signs Pulse 68 02/14/24 08:26 BP 124/74 02/14/24 08:26 Pulse Ox 98 02/14/24 08:26 Oxygen Delivery Method Room Air 02/14/24 08:26 BMI result Body Mass Index 31.9 Tobacco/Smoking Status: Tobacco use Status Tobacco use date assessed 01/13/24 02/14/24 08:27 Patient Tobacco Use Status Never used Tobacco 02/14/24 08:27 Thrive Assessment: Date of Thrive Assessment Date Thrive assessed 01/13/24 02/14/24 08:27 Const General: no acute distress; No comfortable Nutritional Appearance: well nourished and overweight Orientation/consciousness: patient oriented x3 General: Yes no CVA tenderness Back/Spine/Pelvis Back: no CVA tenderness and No erythema Thoracic/Lumbar Spine: thoracic and lumbar spine normal to inspection, paraspinal muscle tenderness, thoraco-lumbar ROM limited with forward flexion, with lateral flexion to the right, with rotation to the right and with rotation to the left and lumbar spinal tenderness Neuro General: patient oriented x3 and gait normal (With slight limp due to pain) Psych Speech and movement: Normal speech and movement present Vital Signs: Last Vital Signs Pulse 68 02/14/24 08:26 BP 124/74 02/14/24 08:26 Pulse Ox 98 02/14/24 08:26 Oxygen Delivery Method Room Air 02/14/24 08:26 BMI result Body Mass Index 31.9 Const General: no acute distress; No comfortable Nutritional Appearance: well nourished and overweight Orientation/consciousness: patient oriented x3 General: Yes no CVA tenderness Back/Spine/Pelvis Back: no CVA tenderness and No erythema Thoracic/Lumbar Spine: thoracic and lumbar spine normal to inspection, paraspinal muscle tenderness, thoraco-lumbar ROM limited with forward flexion, with lateral flexion to the right, with rotation to the right and with rotation to the left and lumbar spinal tenderness Neuro General: patient oriented x3 and gait normal (With slight limp due to pain) Psych Speech and movement: Normal speech and movement present Assessment and Plan Assessment & Plan (1) Acute back pain: Code(s): M54.9 - Dorsalgia, unspecified Qualifiers: Back pain location: low back pain Back pain laterality: midline Sciatica presence: without sciatica Qualified Code(s): M54.50 - Low back pain, unspecified Plan: Return for weakness, numbness, loss of control of bowel or bladder. no lifting more than 10lbs for 2 weeks. Continue using heat and ice for pain. Follow up with primary care doctor PRN PT referral placed. Orders: Orders PT Evaluation and Treatment Today M54.50 - Low back pain, unspecified Coding Level of Care Code Est Pt Level 3 (66622) Diagnoses Acute midline low back pain without sciatica M54.50 Back pain location: low back pain Back pain laterality: midline Sciatica presence: without sciatica Time Spent (min) 20
== END 2024-02-14 14:25 | disposition home or self-care (01) ==
PROVIDERS: PCP Internal Medicine; Visit Provider Nurse Practitioner Family
DX: M54.50 Low back pain, unspecified (principal)
CPT/HCPCS: 99213

== ENCOUNTER → 2024-03-03 09:59 | Outpatient (REF) | payer MEDICARE, SELFPAY ==
--- NOTE | 2024-03-03 10:17 | CA_ITS ---
Acquisition Time: 2024-03-03 10:29:05 Total Exercise Time: 00:07:03 Test Indications: CP Medications: SEE H Protocol: VICTORIANO Max HR: 137 BPM 90% of Pred: 151 BPM Max BP: 164/066 mmHG Max Work Load: 8.6 METS Exercise stress test exercise 7 min 3 sec of Victoriano protocol achieivng 90% MPHR, with mild SOB, no chest discomfort, with isolated PVCs and PACs, with normotensive response to exercise, with downsloping in leads 2, 3, aVF, V3-V6 not meeting criteria for ischemia. Test reviewed with Dr. Oh Recommend stress echo Referred By: Kiera Silva Overread By: Leticia Joseph
--- NOTE | 2024-03-03 10:17 | ECG_ITS ---
Test Reason : R07.9 - Chest pain, unspecified Blood Pressure : / mmHG Vent. Rate : 073 BPM Atrial Rate : 073 BPM P-R Int : 176 ms QRS Dur : 082 ms QT Int : 390 ms P-R-T Axes : 001 -07 028 degrees QTc Int : 429 ms Normal sinus rhythm Normal ECG When compared with ECG of 13-AUG-2014 19:07, No significant change was found Referred By: Kiera Silva Electronically Signed By:CHRISTIANO VELAZQUEZ MD
== END ==
LOC: HO.CARD 09:59
PROVIDERS: PCP Internal Medicine; Visit Provider Internal Medicine
DX: R07.9 Chest pain, unspecified (principal)
CPT/HCPCS: 93005; 93017

== ENCOUNTER → 2024-03-03 10:17 | Outpatient (BNV) | payer MEDICARE, SELFPAY | PROVIDERS: PCP Internal Medicine; Visit Provider Internal Medicine Cardiovascular Disease | DX: I49.1 Atrial premature depolarization (principal); I49.3 Ventricular premature depolarization | CPT/HCPCS: 93010; 93016; 93018 ==

== ENCOUNTER 2024-05-25 15:34 | Outpatient (AMB) | payer MEDICARE, SELFPAY ==
--- NOTE | 2024-05-25 16:16 | MHC.PC.OV ---
Vital Signs 05/25/24 16:17 Height 5 ft 3 in Weight 179 lb 8 oz BMI 31.8 BP 128/84 Blood Pressure Location Lt brachial Position Sitting Pulse 64 Pulse Source Pulse Oximeter Pulse Oximetry (%) 96 Oxygen Delivery Method Room Air Intake Visit Reasons: 3 Month Follow Up [employer] Required: No Accompanied by: Self / Same As Patient Allergies No Known Allergies [No Known Allergies*] Allergy (Verified 05/25/24 16:18) Tobacco use date assessed: 01/13/24 Fall risk assessment: No Falls in past year Last assessed Fall Risk: 05/25/24 Dental Screening Dental Screen Date: 01/13/24 HPI 3 Month Follow Up HPI Details 69-year-old obese female with impaired glucose tolerance GERD asthma hypercholesterolemia coming in for follow-up. Last seen in January 2024 and had physical at that time. Colonoscopy is due, mammogram is due, bone density up-to-date. Patient is scheduled for colon cancer screening in 09/28/2024. Patient had a stress test done in 03/03/2024 negative for ischemia. Patient has been advised stress echo. Patient had some back pain and was seen in the Urgent Center in February 13 advised physical therapy. [facility] Medical History (Updated 05/25/24 @ 16:51 by Kiera Silva MD) Colon cancer screening Hepatitis B Asthma GERD (gastroesophageal reflux disease) Hypercholesterolemia Vaginal atrophy Obesity (BMI 30-39.9) Osteopenia Surgical History H/O wrist surgery Breast implant in situ Family History Mother High blood pressure Arthritis Father No problems noted. Social History Alcohol intake: current Alcohol intake frequency: a few times a week Alcohol type: wine Comment: 2x a week 1 glass Patient Tobacco Use Status: Never used Tobacco e-Cigarette/Vaping Use: Never Used Current occupational status: employed Current occupation: rt hand/ store consultant Cognitive needs: No Hearing needs: No Vision needs: No Questionnaire Thrive Questionnaire Date Thrive assessed: 01/13/24 Are you currently unemployed and looking for a job?: No KEITH-7 AMB Questionnaire KEITH-7 Date KEITH - 7 assessed: 01/13/24 Source: Developed by Drs. Vicente Cordon, Vivian Roberts, Hank New and colleagues, with an educational joel from [employer]. Physical exam (Primary Care) Vital Signs: Last Vital Signs Pulse 64 05/25/24 16:17 BP 128/84 05/25/24 16:17 Pulse Ox 96 05/25/24 16:17 Oxygen Delivery Method Room Air 05/25/24 16:17 BMI result Body Mass Index 31.8 Tobacco/Smoking Status: Tobacco use Status Tobacco use date assessed 01/13/24 05/25/24 16:18 Patient Tobacco Use Status Never used Tobacco 05/25/24 16:18 e-Cigarette/Vaping Use Never Used 05/25/24 16:18 Thrive Assessment: Date of Thrive Assessment Date Thrive assessed 01/13/24 05/25/24 16:18 Const General: alert; No acute distress Eyes Conjunctivae: conjunctivae normal Resp Auscultation: clear to auscultation bilaterally Cardio Rate: regular rate Rhythm: regular rhythm GI Inspection: Yes normal to inspection Extrem General: Yes normal to inspection and No edema Assessment and Plan Assessment & Plan (1) Chest pain: Code(s): R07.9 - Chest pain, unspecified Plan: Patient had stress test done and was advised to get a stress echocardiogram but chest pain is negative (2) Osteoporosis: Code(s): M81.0 - Age-related osteoporosis without current pathological fracture Plan: Discussed about bone density regarding ibuprofen and treatment with calcium and vitamin-D as well as main treatments for increasing bone density. (3) Breast cancer screening by mammogram: Code(s): Z12.31 - Encounter for screening mammogram for malignant neoplasm of breast Plan: Patient is reminded about mammogram (4) Impaired glucose tolerance: Code(s): R73.02 - Impaired glucose tolerance (oral) Plan: Decrease the amount of carbohydrate intake, pasta, bread, rice and potatoes are all sugar and that is aside from all the sweet stuff, remember that fruits are good but they are Sweet also. (5) GERD (gastroesophageal reflux disease): Code(s): K21.9 - Gastro-esophageal reflux disease without esophagitis Plan: GERD plan (6) Asthma: Code(s): J45.909 - Unspecified asthma, uncomplicated Plan: Stable no inhalers. (7) Hypercholesterolemia: Code(s): E78.00 - Pure hypercholesterolemia, unspecified Plan: Avoid fried foods, chicken skin, eggs, butter margarine, pastries and meat. Be it pork or beef they have a lot of cholesterol LDL goal of less than 130 and triglyceride of less than 150. Orders: Orders Complete Blood Count Auto Diff 6 Months E78.00 - Pure hypercholesterolemia, unspecified Comprehensive Met. Panel 6 Months E78.00 - Pure hypercholesterolemia, unspecified Lipid Panel 6 Months E78.00 - Pure hypercholesterolemia, unspecified Vitamin B12 and Folate 6 Months E78.00 - Pure hypercholesterolemia, unspecified Hemoglobin A1c 6 Months E78.00 - Pure hypercholesterolemia, unspecified Free T4 (Free Thyroxine) 6 Months E78.00 - Pure hypercholesterolemia, unspecified Thyroid Stimulating Hormone 6 Months E78.00 - Pure hypercholesterolemia, unspecified Vitamin D 25-OH Total 6 Months E78.00 - Pure hypercholesterolemia, unspecified Coding Level of Care Code Est Pt Level 4 (00631) Diagnoses Chest pain R07.9 Osteoporosis M81.0 Breast cancer screening by mammogram Z12.31 Impaired glucose tolerance R73.02 GERD (gastroesophageal reflux disease) K21.9 Asthma J45.909 Hypercholesterolemia E78.00
[2024-05-25 16:17] VITALS: BP 128/84; PULSE 64; O2SAT 96; BMI 31.8
== END 2024-05-25 16:58 | disposition home or self-care (01) ==
PROVIDERS: PCP Internal Medicine; Visit Provider Internal Medicine
DX: R07.9 Chest pain, unspecified (principal); M81.0 Age-related osteoporosis without current pathological fracture; Z12.31 Encounter for screening mammogram for malignant neoplasm of breast; R73.02 Impaired glucose tolerance (oral); K21.9 Gastro-esophageal reflux disease without esophagitis; J45.909 Unspecified asthma, uncomplicated; E78.00 Pure hypercholesterolemia, unspecified

== ENCOUNTER → 2024-05-25 15:34 | Outpatient (BNVA) | payer MEDICARE, SELFPAY | PROVIDERS: PCP Internal Medicine; Visit Provider Internal Medicine | DX: R07.9 Chest pain, unspecified (principal); M81.0 Age-related osteoporosis without current pathological fracture; R73.02 Impaired glucose tolerance (oral); K21.9 Gastro-esophageal reflux disease without esophagitis; J45.909 Unspecified asthma, uncomplicated; E78.00 Pure hypercholesterolemia, unspecified | CPT/HCPCS: 99212 ==

== ENCOUNTER 2024-06-29 12:23 | Outpatient (REF) | payer MEDICARE, SELFPAY | END 2024-06-29 12:24 | disposition home or self-care (01) | LOC: HO.HOSX 12:23 | PROVIDERS: Visit Provider Physician Assistant | DX: Z13.89 Encounter for screening for other disorder (principal) ==

== ENCOUNTER 2024-09-14 09:23 | Day surgery (SDC) | payer MEDICARE, SELFPAY ==
[2024-09-10 13:40] VITALS: BMI 32.9
--- OUTSIDE RECORDS SUMMARY | 2024-09-11 11:49 | XMS_ITS ---
Author Organization [facility] Address [address] [place] [address] Care Team Providers Care Sightseeing Guide Name Role Phone Kiera Silva MD Primary Care Provider Vicente Carcamo Unavailable [phone] ALLERGIES No Known Allergies REASON FOR VISIT Patient presents today for a colon screening MEDICATIONS Medication SIG (Take, Route, Fr equency, Duration) Notes Start Date End Date Status Famotidine 40 MG TAKE 1 TABLET BY URSULA TH EVERY DAY IN THE MORNING Active IMMUNIZATIONS Vaccine Route Administration Date Status Comme nts Influenza Unknown 05/21/2024 Refused SOCIAL HISTORY Tobacco Use: Social History Observation [...] W/U Status Risk SNOMED Code Notes Problem Chronic GERD (K21.9) Active confirmed Gastroesophagea l reflux disease (disorder) (027785944) VITAL SIGNS BMI 32.99 kg/m2 05/21/2024 Blood pressure systolic 000 mm Hg 05/21/20 24 Blood pressure diastolic 00 mm Hg 09/12/2 024 Height 62 in 05/21/2024 Temperature 97.5 degrees Fahrenheit 05/21/20 24 Weight 180 lb 6 oz lbs 05/21/2024 Encounters Encounter Location Date Provider Diagnosis [facility] [address] [place] [address] 05/21/2024 Vicente Damico Encounter for screening for malignant neoplasm of colon Z12.11 ; Chronic GERD K21.9 and Family history of colon cancer Z80.0 ASSESSMENTS Encounter Date Diagnosis Assessment Notes Treatment Notes Treatment Clinical Notes 05/21/2024 Encounter for screening for malignant neoplasm of colon (ICD-10 - Z12.11) 05/21/2024 Chronic GERD (ICD-10 - K21.9) 05/21/2024 Family history of colon cancer (ICD-10 - Z80.0) PLAN OF TREATMENT Medication Medication Name Sig Start Date Stop Date Notes Famotidine 40 MG TAKE 1 TABLET BY URSULA TH EVERY DAY IN THE MORNING Future Test Test Name Order Date COLONOSCOPY 05/21/2024 Next Appt Details Follow Up: prn, Reason: Provider Name:Vicente Damico , 09/14/2024 10:30:00 AM, [address] [place] [address] , [place], [place], [phone], Progress Notes * Examination Category Sub-Category Detail Notes General Examination GENERAL APPEARANCE: pleasant , well nourished, well developed, in no acute distress HEAD: EYES: sclera non-icteric EARS: NOSE: THROAT: NECK/THYROID: no cervical lymphade nopathy, neck supple HEART: S1, S2 normal CHEST: LUNGS: clear to auscultatio n bilaterally ABDOMEN: normal bowel sounds, no guarding or rigidity, no guarding or rigidity, no masses palpable, soft, nontender, nondistended NEUROLOGIC: alert and oriented SKIN: nonjaundiced, no spi larisa angiomata EXTREMITIES: no edema PERIPHERAL PULSES: BACK: BREASTS: MUSCULOSKELETAL: MALE GENITOURINARY: LYMPH NODES: RECTAL EXAM: FEMALE GENITOURINARY: ORAL CAVITY: mucosa moist
--- OUTSIDE RECORDS SUMMARY | 2024-09-11 11:49 | XMS_ITS | Patient Health Record ---
Author Organization [facility] Address [address] [place] [address] Care Team Providers Care Heel Shaver Name Role Phone Kiera Silva MD Primary Care Provider Vicente Carcamo Unavailable [phone] ALLERGIES No Known Allergies REASON FOR REFERRAL No Information MEDICATIONS Medication SIG (Take, Route, Fr equency, Duration) Notes Start Date End Date Status Famotidine 40 MG TAKE 1 TABLET BY URSULA TH EVERY DAY IN THE MORNING for 90 Active IMMUNIZATIONS Vaccine Route Administration Date Status [...] malignant neoplasm of colon (Z12.11) Active confirmed 151522027 Problem Family history of colon cancer (Z80.0) Active confirmed 414895074 Problem Preprocedural examination (Z01.818) Active confirmed 006684519 Problem Chronic GERD (K21.9) Active confirmed Gastroesophagea l reflux disease (disorder) (513839856) VITAL SIGNS Temperature 97.5 degrees Fahrenheit 05/21/2024 Blood pressure diastolic 00 mm Hg 05/21/2024 Height 62 in 05/21/2024 Blood pressure systolic 000 mm Hg 05/21/2024 Weight 180 lb 6 oz lbs 05/21/2024 BMI 32.99 kg/m2 05/21/2024 Encounters Encounter Location Date Provider Diagnosis [facility] [address] [place] [address] 05/21/2024 Vicenet Damico Encounter for screening for malignant neoplasm of colon Z12.11 ; Chronic GERD K21.9 and Family history of colon cancer Z80.0 ASSESSMENTS Encounter Date Diagnosis Assessment Notes Treatment Notes Treatment Clinical Notes 05/21/2024 Encounter for screening for malignant neoplasm of colon (ICD-10 - Z12.11) 05/21/2024 Chronic GERD (ICD-10 - K21.9) 05/21/2024 Family history of colon cancer (ICD-10 - Z80.0) PLAN OF TREATMENT Future Test Test Name Order Date COLONOSCOPY 07/10/2017 COLONOSCOPY 05/21/2024 Next Appt Details Provider Name:Vicente Damico , 09/14/2024 10:30:00 AM, [address] [place] [address] , [place], [place], [phone], Insurance Providers Payer Name Payer Address Payer Phone Subscriber Number Group Number Insured Name Patient Relationship to Insured Coverage Start Date Coverage End Date [facility] [address] [place] [address] [id number] ANIA DEUTSCH Self - patient is the insured MEDICAL (GENERAL) HISTORY Medical History History ICD Code Denies MS,DM,CVA,Lung disease,renal dise ase Reported negative colonoscopy at age 49 GERD--upper endoscopy in Aug revealed a small hiatal hernia, mild changes of reflux, and mild gastritis. Biopsies were negative for Singh's esophagus and H. pylori. Screening colonoscopy in August was negative for any polyps Surgical History Surgery Date(Month/Year) Right wrist surgery for a fracture 2011 Hospitalization History Reason Date(Month/Year)
--- NOTE | 2024-09-11 11:51 | HO.ANESPROP2 ---
Documented by User: Lisa Gonzáles NP 09/11/24 11:54 HPI - Anesthesia Eval Consult details Narrative: 69yo F for Colonoscopy 01/2024 PCP w/u for atypical CP. EKG ok. Exercise stress with rec for stress echo. Upon PCP f/u, no further CP so no stress echo ordered. [facility] Active Problems Active Problems: All Active Problems Osteoporosis (Acute) Chest pain (Acute) COVID-19 virus infection (Acute) Tendonitis of left rotator cuff (Acute) Witnessed apneic spells (Acute) Breast cancer screening by mammogram (Acute) Impaired glucose tolerance (Acute) Annual physical exam (Acute) Osteopenia (Acute) Asthma (Acute) GERD (gastroesophageal reflux disease) (Acute) Hypercholesterolemia (Acute) Obesity (BMI 30-39.9) (Acute) Past Medical History Medical History Hepatitis B Asthma GERD (gastroesophageal reflux disease) Hypercholesterolemia Vaginal atrophy Obesity (BMI 30-39.9) Osteopenia Family History Family History Mother High blood pressure Arthritis Father No problems noted. Surgical History Surgical History History of esophagogastroduodenoscopy (EGD) H/O colonoscopy H/O wrist surgery Breast implant in situ Social History Social History Household Members: Spouse Alcohol intake: current Alcohol intake frequency: a few times a week Alcohol type: wine Comment: 2x a week 1 glass Patient Tobacco Use Status: Never used Tobacco e-Cigarette/Vaping Use: Never Used Use of substances other than those prescribed or required for medical reasons: No Advance Directives: No Advance Directives Information Provided: Yes Current occupational status: employed Current occupation: rt hand/ assistant store manager sales Cognitive needs: No Hearing needs: No Vision needs: No Meds Allergies Allergy/AdvReac Type Severity Reaction Status Date / Time No Known Allergies Allergy Verified 05/25/24 16:18 [No Known Allergies*] Home Medications ?Medication ?Instructions ?Recorded ?Confirmed ?Last Taken ?Type famotidine 40 mg tablet 40 mg PO DAILY 11/21/20 09/10/24 Unknown History glucosamine sulfate 500 mg tablet 500 mg PO DAILY 01/13/24 01/13/24 Unknown History (Glucosamine) milk thistle 500 mg capsule 500 mg PO DAILY 01/13/24 01/13/24 Unknown History multivitamin 1 tab PO DAILY 01/13/24 01/13/24 Unknown History turmeric 400 mg capsule mg PO 01/13/24 01/13/24 Unknown History Exam Height,Weight and Vital Signs: Height 5 ft 2 in Weight 81.647 kg Pertinent Lab Results Pertinent Lab Results: Laboratory Tests 02/06/24 11:00 WBC 5.6 Hgb 14.2 Hct 42.7 Plt Count 240 Sodium 142 Potassium 4.1 Chloride 105 Carbon Dioxide 28 BUN 14 Creatinine 0.80 Narrative Narrative: EKG 02/2024 Vent. Rate : 073 BPM Atrial Rate : 073 BPM P-R Int : 176 ms QRS Dur : 082 ms QT Int : 390 ms P-R-T Axes : 001 -07 028 degrees QTc Int : 429 ms Normal sinus rhythm Normal ECG When compared with ECG of 13-AUG-2014 19:07, No significant change was found ECHO 02/2024 Protocol: KALEN Max HR: 137 BPM 90% of Pred: 151 BPM Max BP: 164/066 mmHG Max Work Load: 8.6 METS Exercise stress test exercise 7 min 3 sec of Kalen protocol achieivng 90% MPHR, with mild SOB, no chest discomfort, with isolated PVCs and PACs, with normotensive response to exercise, with downsloping in leads 2, 3, aVF, V3-V6 not meeting criteria for ischemia. Test reviewed with Dr. Oh Recommend stress echo Assessment and Plan Assessment Anesthesia Assessment: Chart Reviewed Documented by User: Tanika Mauro MD 09/14/24 11:21 [facility] Past Medical History Medical History Hepatitis B Asthma GERD (gastroesophageal reflux disease) Hypercholesterolemia Vaginal atrophy Obesity (BMI 30-39.9) Osteopenia Family History Family History Mother High blood pressure Arthritis Father No problems noted. Family history of problems with anesthesia: No Surgical History Surgical History History of esophagogastroduodenoscopy (EGD) H/O colonoscopy H/O wrist surgery Breast implant in situ History of Problems with Anesthesia: No Social History Social History Household Members: Spouse Alcohol intake: current Alcohol intake frequency: a few times a week Alcohol type: wine Comment: 2x a week 1 glass Patient Tobacco Use Status: Never used Tobacco e-Cigarette/Vaping Use: Never Used Use of substances other than those prescribed or required for medical reasons: No Advance Directives: No Advance Directives Information Provided: Yes Current occupational status: employed Current occupation: rt hand/ assistant store manager sales Cognitive needs: No Hearing needs: No Vision needs: No Meds Allergies Allergy/AdvReac Type Severity Reaction Status Date / Time No Known Allergies Allergy Verified 05/25/24 16:18 [No Known Allergies*] Home Medications ?Medication ?Instructions ?Recorded ?Confirmed ?Last Taken ?Type famotidine 40 mg tablet 40 mg PO DAILY 11/21/20 09/10/24 Unknown History glucosamine sulfate 500 mg tablet 500 mg PO DAILY 01/13/24 01/13/24 Unknown History (Glucosamine) milk thistle 500 mg capsule 500 mg PO DAILY 01/13/24 01/13/24 Unknown History multivitamin 1 tab PO DAILY 01/13/24 01/13/24 Unknown History turmeric 400 mg capsule mg PO 01/13/24 01/13/24 Unknown History Exam Airway Mallampati Class: II TM Dist: >3cm Neck ROM: Full Heart: rrr Lungs: cta Assessment and Plan Assessment Anesthesia Assessment: Anesthesia Plan Discussed Final Anesthetic Review Family History of Problems with Anesthesia: No History of Problems with Anesthesia: No NPO: Yes ASA Class: II Final Preanesthetic Review: No Changes in Pt Med Stat, Meds/Allgs Chart Reviewed, Consent Obtained/Reviewed and Anes Risks/Benef Reviewed Patient Risk: Intermediate Procedure Risk: Low Anesthetic Plan Anesthetic Plan: MAC: Disposition: Standard PACU
[2024-09-14 09:34] VITALS: BMI 33.5
[2024-09-14 09:45] VITALS: BP 149/66; PULSE 77; RESP 16; TEMP 36.3; O2SAT 97
--- OUTSIDE RECORDS SUMMARY | 2024-09-14 09:50 | XMS_ITS ---
Author Organization [facility] Address [address] [place] [address] Care Team Providers Care Coater Smoking Pipe Name Role Phone Kiera Silva MD Primary Care Provider Vicente Carcamo Unavailable [phone] ALLERGIES No Known Allergies REASON FOR VISIT [...] Active confirmed Gastroesophagea l reflux disease (disorder) (082665473) VITAL SIGNS BMI 32.99 kg/m2 05/21/2024 Blood pressure systolic 000 mm Hg 05/21/20 24 Blood pressure diastolic 00 mm Hg 09/12/2 024 Height 62 in 05/21/2024 Temperature 97.5 degrees Fahrenheit 05/21/20 24 Weight 180 lb 6 oz lbs 05/21/2024 Encounters Encounter Location Date Provider Diagnosis [facility] [address] [place] [address] 05/21/2024 Vicente Damico Encounter for screening for [...] Provider Name:Vicente Damico , 09/14/2024 10:30:00 AM, [address] [place] [address] , [place], [place], [phone], Progress Notes * Examination Category Sub-Category Detail [...]
--- OUTSIDE RECORDS SUMMARY | 2024-09-14 09:50 | XMS_ITS ---
Author Organization [facility] Address [address] [place] [address] Care Team Providers Care Sausage Inspector Name Role Phone Po Kiera LE Primary Care Provider Vicente Carcamo Unavailable [phone] REASON FOR VISIT screening,fam hx colon ca Encounters Encounter Location Date Provider Diagnosis [facility] Outpatient [address] [place] [phone] 09/14/2024 Vicente Damico PLAN OF TREATMENT Next Appt Details Provider Name:Vicente Damico , 09/14/2024 10:30:00 AM, [address] [place] [address] , [place], [place], [phone],
--- OUTSIDE RECORDS SUMMARY | 2024-09-14 09:50 | XMS_ITS | Patient Health Record ---
Author Organization [facility] Address [address] [place] [address] Care Team Providers Care Contact Worker Name Role Phone Kiera Silva MD Primary Care Provider Vicente Carcamo Unavailable [phone] ALLERGIES No Known Allergies REASON FOR REFERRAL [...] malignant neoplasm of colon (Z12.11) Active confirmed 684490973 Problem Family history of colon cancer (Z80.0) Active confirmed 653208271 Problem Preprocedural examination (Z01.818) Active confirmed 185520053 Problem Chronic GERD (K21.9) Active confirmed Gastroesophagea l reflux disease (disorder) (382618347) VITAL SIGNS Temperature 97.5 degrees Fahrenheit 05/21/2024 Blood pressure diastolic 00 mm Hg 05/21/2024 Height 62 in 05/21/2024 Blood pressure systolic 000 mm Hg 05/21/2024 Weight 180 lb 6 oz lbs 05/21/2024 BMI 32.99 kg/m2 05/21/2024 Encounters Encounter Location Date Provider Diagnosis [facility] [address] [place] [phone] 09/14/2024 Vicente Damico [facility] [address] [place] [address] 05/21/2024 Vicente Damico Encounter for screening for [...] Provider Name:Vicente Damico , 09/14/2024 10:30:00 AM, [address] [place] [address] , [place], [place], [phone], Insurance Providers Payer Name Payer Address Payer Phone Subscriber Number Group Number Insured Name Patient Relationship to Insured Coverage Start Date Coverage End Date [facility] [address] [place] [address] [id number] ANIA DEUTSCH Self - patient is the insured MEDICAL (GENERAL) HISTORY Medical History History ICD Code Denies [place],DM,CVA,Lung disease,renal dise ase Reported negative colonoscopy at age 49 GERD--upper endoscopy in Aug revealed a small hiatal hernia, mild changes of reflux, and mild gastritis. Biopsies were negative for Singh's esophagus and H. pylori. Screening colonoscopy in August 7 was negative for any polyps Surgical History Surgery Date(Month/Year) Right wrist surgery for a fracture 2011 Hospitalization History Reason Date(Month/Year)
[2024-09-14] MEDS: Lactated Ringers 1,000 ML 100 ML IVCONT (09:56)
--- NOTE | 2024-09-14 12:22 | PM.OP ---
Brief Operative Note Date of Service: 09/14/24 Pre-op diagnosis: Screening Post-op diagnosis: other (Colon polyps) Procedure: Colonoscopy to the cecum and TI with hot snare polypectomy x 2 with placement of 1 Resolution clip on the polypectomy site at 60cm Surgeon: Vicente Damico MD Anesthesia: MAC Was an Lock Maintenance Supervisor used for this Procedure?: No Estimated blood loss (mL): 2.0 Pathology: other (A. Polyp at 60cm B. Polyp at 30cm) Condition: stable Disposition: PACU
[2024-09-14 12:23] VITALS: BP 143/62; PULSE 76; RESP 16; TEMP 36.3; O2SAT 100
[2024-09-14 12:30] VITALS: BP 157/70; PULSE 75; RESP 16; TEMP 36.1; O2SAT 100
--- NOTE | 2024-09-14 13:25 | OP_ITS ---
DATE OF SERVICE: 09/14/2024 SURGEON: Vicente Damico MD INDICATIONS: The patient presents for evaluation of colorectal cancer screening and family history of colon cancer. Full consent has been obtained from her for this, including risks of bleeding and perforation. PREOPERATIVE DIAGNOSIS: POSTOPERATIVE DIAGNOSIS: PROCEDURE PERFORMED: Colonoscopy to the cecum and terminal ileum with hot snare polypectomy x 2, with placement of 1 Resolution clip on the polypectomy site at 60cm. ESTIMATED BLOOD LOSS: COMPLICATIONS: ANESTHESIA: Monitored anesthesia care. ASSISTANTS: SPECIMENS: PREOPERATIVE DIAGNOSES: Colorectal cancer screening and family history of colon cancer. POSTOPERATIVE DIAGNOSES: Colorectal cancer screening, family history of colon cancer, colon polyps, diverticulosis, and internal hemorrhoids. DESCRIPTION OF PROCEDURE: The patient was placed in the left lateral decubitus position. The digital rectal exam revealed no abnormalities. The [employer] video pediatric colonoscope was then entered into the rectum and advanced easily to the cecum. Once in the cecum, I did identify normal-appearing cecal pouch with appendiceal orifice and a normal-appearing ileocecal valve. The terminal ileum was cannulated and appeared normal. Scope was withdrawn back in the colon. The entire cecum and ileocecal valve appeared normal. The scope was slowly withdrawn assessing all mucosal surfaces carefully. Preparation was excellent. At 60 cm, was a flat, but raised approximately 8 to 10 mm polyp, which was removed by hot snare polypectomy and recovered by suction. There was some oozing from the polypectomy site and this was initially cauterized with the tip of the snare with good hemostasis and then a single Resolution clip was placed with good deployment and continued good hemostasis. At 30 cm, was an approximately 12 mm polyp on a short stalk, which was removed by hot snare polypectomy at the base of the stalk. The polyp was then recovered by retrieving it on the tip of the scope. The scope was advanced back to the polypectomy site, which appeared clean and without any sign of residual polyp nor bleeding. I did not visualize any other polyps, colitis, nor angiodysplasias. There was a mild amount of sigmoid diverticulosis. In the rectum, scope was retroflexed, visualizing internal hemorrhoids, but no other pathology. The rectal mucosa appeared normal. Scope was straightened and withdrawn from the patient. She tolerated the procedure well and was returned to the recovery area in stable condition. IMPRESSION: 1. Colon polyps. 2. Diverticulosis. 3. Internal hemorrhoids. PLAN: The results of the pathology will be checked. Given today's findings and her family history, I would recommend a followup colonoscopy in 5 years for further screening. She will, otherwise, see me on a p.r.n. basis. She was advised not to use any aspirin and NSAIDs for 1 week. MD RUDI Flores/KACIE / [id number] [facility]
== END 2024-09-14 12:53 | disposition home or self-care (01) ==
PROVIDERS: PCP Internal Medicine; Visit Provider Internal Medicine
PROC: 0DJD8ZZ Inspection of Lower Intestinal Tract, Via Natural or Artificial Opening Endoscopic (ICD-10-PCS; CPT 45378; principal; 2024-09-14 10:30)
DX: Z12.11 Encounter for screening for malignant neoplasm of colon (principal); D12.4 Benign neoplasm of descending colon; D12.5 Benign neoplasm of sigmoid colon; K57.30 Diverticulosis of large intestine without perforation or abscess without bleeding; K64.8 Other hemorrhoids; Z80.0 Family history of malignant neoplasm of digestive organs; E78.00 Pure hypercholesterolemia, unspecified; J45.909 Unspecified asthma, uncomplicated; K21.9 Gastro-esophageal reflux disease without esophagitis; B19.10 Unspecified viral hepatitis B without hepatic coma; Z79.899 Other long term (current) drug therapy
CPT/HCPCS: 45385; 88305; J2003; J2704

== ENCOUNTER 2025-07-12 13:33 | Outpatient (AMB) | payer MEDICARE, SELFPAY ==
[2025-07-12 13:35] VITALS: BP 138/80; PULSE 76; TEMP 36.2; O2SAT 97; BMI 35.1
--- NOTE | 2025-07-12 13:35 | MHC.PC.OV ---
Vital Signs 07/12/25 13:35 Height 5 ft 1 in Weight 186 lb BMI 35.1 BP 138/80 Blood Pressure Location Lt brachial Position Sitting Pulse 76 Pulse Source Pulse Oximeter Temp 97.1 F Temp Source Temporal Artery Scan Pulse Oximetry (%) 97 Oxygen Delivery Method Room Air Intake Visit Reasons: Right hip follow up Allergies No Known Allergies (No Known Allergies*) Allergy (Verified 07/12/25 13:37) Medication List - Last Reconciled 07/12/25 by Kiera Silva MD cholecalciferol (vitamin D3) 50 mcg PO DAILY famotidine 40 mg PO DAILY glucosamine sulfate (Glucosamine) 500 mg PO DAILY meloxicam 15 mg PO DAILY milk thistle 500 mg PO DAILY multivitamin 1 tab PO DAILY turmeric mg PO Tobacco use date assessed: 07/12/25 Fall risk assessment: No Falls in past year Last assessed Fall Risk: 07/12/25 Dental Screening Dental Screen Date: 07/12/25 Did you have a dental visit in the last 12 months?: Yes Did you have a dental problem in the last 6 months where you did not have access to dental care?: No Was dental information given to patient?: Patient has dentist [facility] Medical History Hepatitis B Asthma GERD (gastroesophageal reflux disease) Hypercholesterolemia Vaginal atrophy Obesity (BMI 30-39.9) Osteopenia Surgical History History of esophagogastroduodenoscopy (EGD) H/O colonoscopy H/O wrist surgery Breast implant in situ Family History Mother High blood pressure Arthritis Father No problems noted. Social History Household Members: Spouse Alcohol intake: current Alcohol intake frequency: a few times a week Alcohol type: wine Comment: 2x a week 1 glass Patient Tobacco Use Status: Never used Tobacco e-Cigarette/Vaping Use: Never Used Current occupational status: employed Current occupation: rt hand/ jewelry store manager Cognitive needs: No Hearing needs: No Vision needs: No Questionnaire PHQ-9 Over the last 2 weeks, how often have you been bothered by any of the following problems? 1. Little interest or pleasure in doing things: not at all 2. Feeling down, depressed, or hopeless: not at all 3. Trouble falling or staying asleep, or sleeping too much: not at all 4. Feeling tired or having little energy: not at all 5. Poor appetite or overeating: not at all 6. Feeling bad about yourself - or that you are a failure or have let yourself or your family down: not at all 7. Trouble concentrating on things, such as reading the newspaper or watching television: not at all 8. Moving or speaking so slowly that other people could have noticed. Or the opposite - being so fidgety or restless that you have been moving around a lot more than usual: not at all 9. Thoughts that you would be better off or of hurting yourself in some way: not at all Total score: 0 Depression Screening Interpretation: Negative Depression Screening Done: Yes 02778 - PHQ-9 Billing: Yes Source: Developed by Drs. Vicente Cordon, Vivian Roberts, Hank New and colleagues, with an educational joel from [employer]. Thrive Questionnaire Date Thrive assessed: 07/12/25 I am a: Patient What is your living situation today?: I have a steady place to live Within the past 12 months, did the food you bought not last and you didn't have the money to get more?: Never true Within the past 12 months, did you worry whether your food would run out before you got money to buy more?: Never true Do you have trouble paying for medicines?: No Do you have trouble getting transportation to medical appointments?: No Do you have trouble paying your heating and electricity bill?: No Do you have trouble taking care of your child, family member or friend?: No Do you have trouble with day-to-day activities such as bathing, preparing meals, shopping, managing finances, etc.?: No Are you currently unemployed and looking for a job?: No Are you interested in more education?: No Please select the resources that you would like help with: None Currently or been in a relationship where the following occur: No concerns reported THRIVE Score: 0 AUDIT C Alcohol Use Questionnaire (AUDIT-C) 1. How often do you have a drink containing alcohol?: 2-3 times a week 2. How many drinks containing alcohol do you have on a typical day when you are drinking?: 1 or 2 3. How often do you have six or more drinks on one occasion?: Never Total Score: 3 KEITH-7 AMB Questionnaire KEITH-7 Date KEITH - 7 assessed: 07/12/25 Feeling nervous, anxious, or on edge: 0 = Not at all Not being able to stop or control worryin = Not at all Worrying too much about different things: 0 = Not at all Trouble relaxin = Not at all Being so restless that it is hard to sit still: 0 = Not at all Becoming easily annoyed or irritable: 0 = Not at all Feeling afraid as if something awful might happen: 0 = Not at all Total KEITH-7 score (0-4 normal; 5-9 mild; 10-14 moderate; 15-21 severe): 0 Source: Developed by Drs. Vicente Cordon, Vivian Roberts, Hank New and colleagues, with an educational joel from [employer]. KEITH-7 Assessment Billing KEITH-7 Assessment Tool: KEITH-7 Assessment 76444 Physical exam (Primary Care) Vital Signs: Last Vital Signs Temp 97.1 F 07/12/25 13:35 Pulse 76 07/12/25 13:35 BP 138/80 07/12/25 13:35 Pulse Ox 97 07/12/25 13:35 Oxygen Delivery Method Room Air 07/12/25 13:35 BMI result Body Mass Index 35.1 Tobacco/Smoking Status: Tobacco use Status Tobacco use date assessed 07/12/25 07/12/25 13:39 Patient Tobacco Use Status Never used Tobacco 07/12/25 13:39 e-Cigarette/Vaping Use Never Used 07/12/25 13:39 PHQ-9: PHQ-9 Score PHQ-9: Total score 0 07/12/25 13:44 Depression Screening Interpretation: Negative Thrive Assessment: Date of Thrive Assessment Date Thrive assessed 07/12/25 07/12/25 13:39 Currently or been in a relationship where the following occur: No concerns reported Const General: alert; No acute distress Eyes Conjunctivae: conjunctivae normal Resp Auscultation: clear to auscultation bilaterally Cardio Rate: regular rate Rhythm: regular rhythm GI Inspection: Yes normal to inspection Extrem General: Yes normal to inspection and No edema Coding Level of Care Code Est Pt Level 4 (71562) Complex EM visit Add On G2211 Diagnoses Impaired glucose tolerance R73.02 Hypercholesterolemia E78.00 Osteoporosis M81.0 Obesity (BMI 30-39.9) E66.9 GERD (gastroesophageal reflux disease) K21.9 Breast cancer screening by mammogram Z12. Asthma J45.909 Hip pain, right M25.551 Additional Codes KEITH-7 Assessment Billing - KEITH-7 Assessment Tool: KEITH-7 Assessment 56927 ([id number]) PHQ-9 - 06188 - PHQ-9 Billing: Yes ([id number]) Assessment & Plan Assessment & Plan (1) Impaired glucose tolerance: Code(s): R73.02 - Impaired glucose tolerance (oral) Category: Medical Plan: Decrease the amount of carbohydrate intake, pasta, bread, rice and potatoes are all sugar and that is aside from all the sweet stuff, remember that fruits are good but they are Sweet also. (2) Hypercholesterolemia: Code(s): E78.00 - Pure hypercholesterolemia, unspecified Category: Medical Plan: Avoid fried foods, chicken skin, eggs, butter margarine, pastries and meat. Be it pork or beef they have a lot of cholesterol LDL goal of less than 130 and triglyceride of less than 150 (3) Osteoporosis: Code(s): M81.0 - Age-related osteoporosis without current pathological fracture Category: Medical Plan: Discussed about calcium and vitamin-D and keeping active (4) Obesity (BMI 30-39.9): Code(s): E66.9 - Obesity, unspecified Category: Medical Plan: Diet and exercise (5) GERD (gastroesophageal reflux disease): Code(s): K21.9 - Gastro-esophageal reflux disease without esophagitis Category: Medical Plan: Avoid the foods that causes that usually spicy foods, tomato products, juices, coffee, soda and foods that your sensitive to. After eating do not lie down, allow 3-4 hours before in lie down. And keep the head of bed above 30 degrees to avoid the acid from going up. (6) Breast cancer screening by mammogram: Code(s): Z12.31 - Encounter for screening mammogram for malignant neoplasm of breast Category: Medical Plan: Reminded about mammogram (7) Asthma: Code(s): J45.909 - Unspecified asthma, uncomplicated Category: Medical Plan: Stable (8) Hip pain, right: Code(s): M25.551 - Pain in right hip Category: Medical Plan History of Present Illness The patient is a 70-year-old obese female presenting with severe right hip pain and for a general follow-up. She has noted a 7-pound weight gain since her last visit in May 2024. The chief complaint is severe pain in the right hip, which at times prevents her from lifting her leg to climb stairs or get into a car. The pain is located on the side of the hip, not the buttock, and the area is tender to touch. She reports associated backaches and wonders if it could be a pinched nerve. The patient has a history of bursitis in her shoulder, which responded to a steroid injection. The patient has a history of hypercholesterolemia, which was noted to be elevated on her last blood work in January 2024. Her last colonoscopy in September 2024 revealed a benign tubular adenoma, with a recommendation for a follow-up in five years. She also has a history of gastroesophageal reflux, for which she takes prescription famotidine. She reports her heartburn has improved since she started taking the medication at night instead of in the morning. The patient was diagnosed with osteoporosis following a bone density scan in January 2024. She takes vitamin D3 but is unsure of the dose. 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 Health Maintenance The patient is due for a mammogram, and a request will be submitted. She has been reminded that her next follow-up colonoscopy is due in 5 years after her last one in September 2024. We discussed vaccinations, including the shingles vaccine which is available at pharmacies, and general precautions for preventing infection, especially given her role as a caregiver. 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 - She reports that her activity level is low due to her caregiving responsibilities. - She has a history of going to the gym and doing Pilates and is considering moving her treadmill to her mother's house to be more active. - She reports drinking a lot of water and tea. Review of Systems - General: Reports a 7-pound weight gain. - Musculoskeletal: Reports severe right hip pain, especially with movement, and intermittent backaches. - Gastrointestinal: Denies heartburn while on famotidine. Reports normal bowel movements. - Genitourinary: Reports waking once per night to urinate. - Neurological: Denies unsteadiness when walking. Physical Exam - General: Patient is an obese female. - Vital Signs: Blood pressure is noted to be good. - Musculoskeletal: Examination of the right hip reveals tenderness on palpation over the lateral aspect. - Musculoskeletal: Lateral hip movement is non-painful, but lifting the leg elicits pain. - Musculoskeletal: Mild tenderness is noted in the back. Results - Colonoscopy (September 2024): Revealed a tubular adenoma. - Labs (January 2024): Normal blood count and liver function, elevated cholesterol. - Bone Density (January 2024): Consistent with osteopenia or osteoporosis. Plan Patient was informed and verbally consented to the use of an ambient scribe for clinic note documentation during this visit. 1. Right Hip Pain The patient's severe right hip pain is concerning for arthritis. An X-ray of the right hip and pelvis has been ordered to evaluate for underlying pathology, which the patient should complete before her upcoming orthopedics appointment. A referral to orthopedics has been placed, as the patient already has an appointment scheduled. For pain management, a prescription for meloxicam, an anti-inflammatory, was sent. The patient was counseled that this will help with the pain but not eliminate it, and it should be taken with food. Topical Voltaren gel was discussed as an alternative. The risks of steroid injections, including bone softening and elevated blood sugar, were also discussed. 2. Osteoporosis The patient has a known diagnosis of osteoporosis based on her January 2024 bone density scan. She was advised on the importance of calcium and vitamin D supplementation. We discussed her current vitamin D intake, and she will check her dosage, with a general recommendation of taking around 0050-5138 units daily, and she will adjust her current intake accordingly. The patient was also counseled on the importance of fall prevention. 3. Hypercholesterolemia The patient's cholesterol was elevated on previous labs. A request for a new blood test has been submitted to re-evaluate her lipid panel. 4. Gastroesophageal Reflux Disease The patient's reflux symptoms are well-controlled by taking famotidine at night. A new prescription for famotidine has been sent to her pharmacy. Discussion Notes I discussed the plan for her right hip pain, explaining that an x-ray is necessary before her orthopedics appointment. I've provided a prescription for meloxicam for pain relief and explained it must be taken with food, while also mentioning topical Voltaren gel as an alternative. We reviewed the risks of steroid injections, including potential for bone softening and hyperglycemia. I counseled her on osteoporosis management, stressing the importance of adequate calcium and vitamin D. We discussed appropriate vitamin D dosing, and she will adjust her current supplement intake. I also renewed her famotidine prescription, reminded her that her mammogram is due, and discussed the availability of the shingles vaccine. Patient Instructions - Please go to the hospital to get an X-ray of your right hip and pelvis. - It is important to get the X-ray done before your orthopedic appointment on the . - A prescription for meloxicam has been sent to your pharmacy for hip pain. Take it with food. - Do not take the meloxicam pill and use Voltaren gel at the same time; it is one or the other. - A prescription for famotidine (for heartburn) has been renewed. - Continue taking calcium and vitamin D for your bone health. You may need to adjust your vitamin D dose; we will discuss this further. - Please schedule your mammogram, as it is now due. - You may want to consider getting the shingles vaccine, which is available at the pharmacy. - Lab orders for blood tests have been placed for you. Orders: Orders MM tomosynthesis screening BI Today Z12.31 - Encounter for screening mammogram for malignant neoplasm of breast XR hip RT w PEL1V Today M25.551 - Pain in right hip Referrals Orthopedics Referral M25.551 - Pain in right hip Medications: New famotidine 40 mg PO DAILY 90 tabs 1RF K21.9 - Gastro-esophageal reflux disease without esophagitis meloxicam 15 mg PO DAILY 30 tabs 0RF M25.551 - Pain in right hip
== END 2025-07-12 14:04 | disposition home or self-care (01) ==
LOC: HO.HMCH 13:34
PROVIDERS: PCP Internal Medicine; Visit Provider Internal Medicine
DX: R73.02 Impaired glucose tolerance (oral) (principal); E78.00 Pure hypercholesterolemia, unspecified; Z68.35 Body mass index [BMI] 35.0-35.9, adult; E66.9 Obesity, unspecified; M81.0 Age-related osteoporosis without current pathological fracture; K21.9 Gastro-esophageal reflux disease without esophagitis; Z12.31 Encounter for screening mammogram for malignant neoplasm of breast; J45.909 Unspecified asthma, uncomplicated; M25.551 Pain in right hip

== ENCOUNTER 2025-07-12 13:33 | Outpatient (REF) | payer MEDICARE, SELFPAY ==
--- NOTE | ~2025-07-12 | XR_ITS ---
EXAMINATION: XR HIP, RIGHT CLINICAL INFORMATION: M25.551 - Pain in right hip COMPARISON: None available. TECHNIQUE: Two views of the right hip. Pelvis 1 view FINDINGS: Right hip: No fracture. Alignment is anatomic. Hip joint space is maintained. No abnormal soft tissue calcification. Pelvis: No acute fracture or dislocation. SI joints and symphysis pubis are intact. No suspicious bony lesion. No abnormal soft tissue calcification. XR/XR hip RT w PEL1V IMPRESSION: No acute osseous findings Electronically signed by: Mahesh Tobar MD 07/13/2025 03:30 PM EST
== END 2025-07-12 13:34 | disposition home or self-care (01) ==
LOC: HO.XRAY 13:33
PROVIDERS: PCP Internal Medicine; Visit Provider Internal Medicine
DX: M25.551 Pain in right hip (principal); M81.0 Age-related osteoporosis without current pathological fracture; R73.02 Impaired glucose tolerance (oral); E78.00 Pure hypercholesterolemia, unspecified; E66.9 Obesity, unspecified; K21.9 Gastro-esophageal reflux disease without esophagitis; J45.909 Unspecified asthma, uncomplicated
CPT/HCPCS: 73502; 96127; 99212

== ENCOUNTER → 2025-07-12 14:19 | Outpatient (BNV) | payer MEDICARE, SELFPAY | PROVIDERS: PCP Internal Medicine; Visit Provider Radiology Diagnostic Ultrasound | DX: M25.551 Pain in right hip (principal) | CPT/HCPCS: 73502 ==

== ENCOUNTER 2025-07-16 08:34 | Outpatient (REF) | payer MEDICARE, SELFPAY ==
--- OUTSIDE RECORDS SUMMARY | 2024-09-14 05:30 | XMS_ITS ---
Author Organization [facility] Address [address] [place] [address] Care Team Providers Care Channel Process Supervisor Name Role Phone Po Kiera LE Primary Care Provider Vicente Carcamo [phone] REASON FOR VISIT screening,fam hx colon ca Problems Problem Type SNOMED Code ICD Code Onset Dates Problem Status W/U Status Risk Notes Problem Diverticular disease of colon (678078298) Diverticulosis of large intestine without perforation or abscess without bleeding (K57.30) Active confirmed Encounters Encounter Location Date Provider Diagnosis [facility] [address] [place], [place] [phone] 09/14/2024 Vicente Damico Colon cancer scree huey Z12.11 ; Colon polyps K63.5 ; Family history of colon cancer Z80.0 ; Diverticulosis of large intestine without perforation or abscess without bleeding K57.30 and Other hemorrhoids K64.8 Assessments Encounter Date Diagnosis (ICD Code) Assessment Notes Treatment Notes Treatment Clinical Notes Section Notes 09/14/2024 Colon cancer screening (ICD-10 - Z12.11) 09/14/2024 Colon polyps (ICD-10 - K63.5) 09/14/2024 Family history of colon cancer (ICD-10 - Z80.0) 09/14/2024 Diverticulosis of large intestine without perforation or abscess without bleeding (ICD-10 - K57.30) 09/14/2024 Other hemorrhoids (ICD-10 - K64.8) Plan Of Treatment No Information Progress Notes * ANIA DEUTSCH SDOB: 4 (70 yo F)Acc No.[id number]:09/14/2024 COLON WITH MAC Patient: ANIA LAI Provider: Sienna Damico MD :1955 A ge:69 Y S ex:Female Date:09/14/2024 Address:[address] [facility] Pcp:Kiera Silva MD Subjective: * Chief Complaints: * 1 . Screening,fam hx colon ca. * Medical History: Objective: * Vitals: Assessment: * Assessment: 1. C olon cancer screening - Z12.11 (Primary) 2 . C olon polyps - K63.5? 3. F amily history of colon cancer - Z80.0 4 . D iverticulosis of large intestine without perforation or abscess without bleeding - K57.30 5 . Other hemorrhoids - K64.8 Plan: * Treatment: * Procedure Codes: 4 5385 LESION REMOVAL COLONOSCOPY, Modifiers: PT , 0529F INTRVL 3+YRS PTS CLNSCP DOCD, 0528F RCMND FLW-UP 10 YRS DOCD, Modifiers: 1P * * The named appointment provid er may or may not be the originator of this progress note, and it is not deemed complete until electronically signed by the appointment provider. Sign off status: Pending * Provider: Sienna Damico MD Date: 0 09/14/2024 Generated for Emiliano ace/Cong/Carminaitting on: 09/15/2024 09:06 AM EST
[2025-07-16 08:57] LABS: MANUAL DIFF FLAG NO
--- OUTSIDE RECORDS SUMMARY | 2025-07-16 09:06 | XMS_ITS | Patient Health Record ---
Author Organization [facility] Address [address] [place] [address] Care Team Providers Care Perinatal Educator Name Role Phone Kiera Silva MD Primary Care Provider Vicente Carcamo Unavailable [phone] Allergies No Known Allergies Results Component Value Reference Range Notes Pathology Reviewed date:10/01/2024 10:24:03 AM Interpretation: Performing Lab:[facility], [address] [place] [id number] Notes/Report: Reason For Referral No Information Medications Medication SIG (Take, Route, Fr equency, Duration) Notes Start Date End Date Status Famotidine 40 MG TAKE 1 TABLET BY URSULA TH EVERY DAY IN THE MORNING; Duration: 90 Active Immunizations Vaccine Route Administration Date Status Comme nts Influenza Unknown 05/21/2024 Refused Social History Tobacco Use: Social History Observation Description Date Details (start date - stop date) Never Smoker NA - NA Tobacco Use/Smoking Question Answer Notes Patient is [...] Never (0 point) Points 1 Interpretation Negative Section Notes: Nonsmoker; no sig alcohol Nonsmoker; no sig alcohol Problems Problem Type SNOMED Code ICD Code Onset Dates Problem Status W/U Status Risk Notes Problem Screening for malignant neoplasm of colon (874281149) Encounter for screening for malignant neoplasm of colon (Z12.11) Active confirmed Problem Diverticular disease of colon (275298406) Diverticulosis of large intestine without perforation or abscess without bleeding (K57.30) Active confirmed Problem Preprocedural examination (341221570109312) Preprocedural examination (Z01.818) Active confirmed Problem Family History of Cancer of Colon (Situation) (224241254) Family history of colon cancer (Z80.0) Active confirmed Problem Gastroesophageal reflux disease (disorder) (804188703) Chronic GERD (K21.9) Active confirmed Encounters Encounter Location Date Provider Diagnosis [facility] [address] [place] [phone] 09/14/2024 Vicente Damico Colon cancer [facility] [...] hemorrhoids (ICD-10 - K64.8) Plan Of Treatment Future Test Test Name Order Date COLONOSCOPY 07/10/2017 COLONOSCOPY 05/21/2024 Insurance Providers Payer Name Payer Address Payer Phone Subscriber Number Group Number Insured Name Patient Relationship to Insured Coverage Start Date Coverage End Date [facility] [address] [place] [address] [id number] ANIA DEUTSCH Self - patient is the insured Medical (General) History Medical History History ICD Code Denies MO,DM,CVA,Lung disease,renal dise ase Reported negative colonoscopy at [...]
[2025-07-16 09:22] LABS: Hematocrit 40.3 % (37.0-47.0); Hemoglobin 13.2 g/dl (12.0-16.0); Imm Gran Abs Auto 0.02 X10*3/uL (0.00-0.03); Imm Gran Pct Auto 0.4 % (0.0-0.4); Lymphocytes Absolute Auto 2.0 X10*3/uL (1.2-4.9); Mean Corpuscular HGB Conc 32.8 g/dl (31.0-35.0); Mean Corpuscular Hemoglobin 30.8 pg (27.0-33.0); Mean Corpuscular Volume 94.2 fL (80.0-98.0); NRBC Abs Auto 0.000 X10*3/uL (0.0-0.012); NRBC Pct Auto 0.0 /100WBC (0.0-0.2); Platelet Count 228 X10*3/uL (160-400); Red Blood Count 4.28 X10*6/uL (4.20-5.50); White Blood Count 5.6 X10*3/uL (4.8-10.8)
[2025-07-16 09:43] LABS: Alanine Aminotransferase 35 U/L (0-31); Albumin Level 4.2 g/dL (3.5-5.0); Alkaline Phosphatase 75 U/L (39-117); Anion Gap 10 (12-20); Aspartate Amino Transferase 30 U/L (5-31); Blood Urea Nitrogen 15 mg/dL (9-16); Calcium 9.2 mg/dL (8.4-10.2); Carbon Dioxide 26 mmol/L (22-29); Chloride 108 mmol/L (96-108); Cholesterol 229 mg/dL (<200); Estimated Glomerular Filt Rate > 60; HDL Cholesterol 62 mg/dL (>40); Potassium 4.2 mmol/L (3.3-5.1); Sodium 140 mmol/L (135-145); Total Protein 7.2 g/dL (6.5-8.0); Triglycerides 148 mg/dL (<150)
[2025-07-16 10:00] LABS: Free T4 (Free Thyroxine) 1.02 ng/dL (0.71-1.85); Thyroid Stimulating Hormone 4.01 uIU/mL (0.32-4.0)
[2025-07-16 10:08] LABS: Folate 15.8 ng/mL (> or = 4.0); Vitamin B12 583 pg/mL (200-900)
== END 2025-07-16 08:35 | disposition home or self-care (01) ==
LOC: HO.LAB 08:34
PROVIDERS: PCP Internal Medicine; Visit Provider Internal Medicine
DX: Z13.1 Encounter for screening for diabetes mellitus (principal); Z13.6 Encounter for screening for cardiovascular disorders; Z13.21 Encounter for screening for nutritional disorder; E78.00 Pure hypercholesterolemia, unspecified
CPT/HCPCS: 36415; 80053; 80061; 82306; 82607; 82746; 83036; 84439; 84443; 85025

== ENCOUNTER 2025-08-04 11:31 | Outpatient (AMB) | payer MEDICARE, SELFPAY ==
--- NOTE | 2025-08-04 11:37 | A.OFFVIS_ITS ---
Vital Signs 08/04/25 11:43 Height 5 ft 1 in Weight 186 lb BMI 35.1 Intake Visit Reasons: Newprob-Right hip pain Intake Note: Neymar is a 70 year old female who presents today as an established patient, new problem visit to evaluate right hip pain. Patient referred by PCP, x-rays were obtained and she was prescribed meloxicam to help relief her pain. Today patient reports her pain has been present for about 3 months. Denies injury. Her pain is located at the lateral side of hip, states tender to the touch. She describes her discomfort as a piercing pain. Denies numbness or tingling. No previous treatment. She mentions that she was recently seen at the ER for back spasms. Allergies No Known Allergies (No Known Allergies*) Allergy (Verified 08/04/25 11:45) Medication List - Last Reconciled 08/04/25 by Kelly Do PA-C cholecalciferol (vitamin D3) 50 mcg PO DAILY famotidine 40 mg PO DAILY glucosamine sulfate (Glucosamine) 500 mg PO DAILY milk thistle 500 mg PO DAILY multivitamin 1 tab PO DAILY turmeric mg PO HPI HPI Newprob-Right hip pain: Details: 70-year-old female presents to the office today for ongoing right hip pain x3 months. She has pain on the lateral aspect of the hip which does not radiate down the leg. She has pain when she sleeps on the right side. 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 [facility] Medical History Hepatitis B Asthma GERD (gastroesophageal reflux disease) Hypercholesterolemia Vaginal atrophy Obesity (BMI 30-39.9) Osteopenia Surgical History History of esophagogastroduodenoscopy (EGD) H/O colonoscopy H/O wrist surgery Breast implant in situ Family History Mother High blood pressure Arthritis Father No problems noted. Social History (Updated 08/04/25 @ 11:42 by CHAR Hernandez) Household Members: Spouse Alcohol intake: current Alcohol intake frequency: a few times a week Alcohol type: wine Comment: 2x a week 1 glass Patient Tobacco Use Status: Never used Tobacco e-Cigarette/Vaping Use: Never Used Current occupational status: retired Current occupation: rt hand dominant Cognitive needs: No Hearing needs: No Vision needs: No Review of Systems Const All systems reviewed & are unremarkable except as noted in HPI and below Physical Exam Vital Signs: BMI result Body Mass Index 35.1 Const General: cooperative and no acute distress Orientation/consciousness: patient oriented x3 Resp Effort & Inspection: normal respiratory effort and able to speak in complete sentences Cardio Peripheral pulses: Peripheral pulses 2+ throughout Neuro General: patient oriented x3 Extrem Other: Rt hip normal to inspection. No pain with ROM of the hip. Pain along the greater trochanter. No pain with hip flexion or abduction.There is tenderness along the si joint, Negative SLR. NVI. Results Reviewed Results Reviewed: XR hip RT w PEL1V IMPRESSION: No acute osseous findings Assessment & Plan Assessment & Plan (1) Trochanteric bursitis, right hip: Code(s): M70.61 - Trochanteric bursitis, right hip Category: Medical Plan: We discussed options which include PT, NSAIDs and injections. She will defer on the injection today and proceed with PT and NSAIDs. If symptoms persist she will contact me for an injection, otherwise, prn. Orders: Orders PT Evaluation and Treatment Today M70.61 - Trochanteric bursitis, right hip Medications: New celecoxib (Celebrex) 200 mg PO BID 28 caps 0RF 14 days Patient Instructions: Prescribed NSAID for orthopedic pain related to hip bursitis . Reviewed patient history including no GI ulcer/bleed, CKD, CHF, CAD, liver disease, bleeding disorders, or NSAID allergy. Current medications reviewed with no interactions or duplicate NSAID use. Discussed orthopedic considerations, including short- term use being appropriate for soft-tissue pain and potential effects on fracture healing if applicable. Reviewed risks: GI irritation/bleeding, renal impairment, cardiovascular risk, and avoiding multiple NSAIDs. Instructed bárbara ent to take with food, avoid alcohol, and monitor for red-flag symptoms (black stools, hematemesis, severe abdominal pain, decreased urination, chest pain, SOB, worsening pain). I explained to the patient if they require potential termination clerk use of NSAID therapy, routine labs would be required to monitor kidney function and a copy would be sent to their PCP in case there are abnormalities that require attention. Patient verbalized understanding. Coding Level of Care Code Complex visit Add On G2211 Diagnoses Trochanteric bursitis, right hip M70.61
[2025-08-04 11:43] VITALS: BMI 35.1
== END 2025-08-04 12:14 | disposition home or self-care (01) ==
LOC: HO.HOS 11:32
PROVIDERS: PCP Internal Medicine; Visit Provider Physician Assistant
DX: M70.61 Trochanteric bursitis, right hip (principal)
CPT/HCPCS: 99213; G2211

== ENCOUNTER → 2025-08-04 11:31 | Outpatient (BNVA) | payer MEDICARE, SELFPAY | PROVIDERS: PCP Internal Medicine; Visit Provider Physician Assistant | DX: M70.61 Trochanteric bursitis, right hip (principal) | CPT/HCPCS: 99212 ==